=== PATIENT | male | born 1935 | race Caucasian/White ===

== ENCOUNTER 2016-09-05 08:59 | Emergency (ER) | payer OTHER ==
[~2016-09-05] VITALS: Ht 177.8 cm; Wt 84.6 kg
[~2016-09-05 08:59] MED LIST: ASPI81TA28 PO; OMEG10003 PO; PRED10TA PO; TRIA0.1C20 PO
[2016-09-05 09:04] VITALS: TEMP 36.6; Ht 177.8 cm; Wt 84.6 kg
[2016-09-05] MEDS ORDERED: CYAN500T PO (09:45)
[2016-09-05] MEDS ORDERED: TAMS0.4C38 PO (09:47)
[2016-09-05] MEDS ORDERED: TRMCR130WC EX (09:47)
[2016-09-05] MEDS ORDERED: NITR-5 PO (09:48)
--- NOTE | 2016-09-05 10:03 | EMERGENCY ROOM VISIT NOTE ---
History Report prepared by Edmundo: Josy Owens Under the Supervision of: Dr. Naveen Agosto M.D. First contact with patient: 09:46 Chief Complaint: WEAKNESS Stated Complaint: VERY WEAK,NOT EATING History of Present Illness The patient is a 81 year old male who presents to the Emergency Room with complaints of worsening weakness since yesterday. The patient has a history of dementia and the majority of the history is obtained from the patient's . She states that about 1 month ago the patient had a urinary catheter placed for urinary retention and an enlarged prostate. They have been on vacation for the past month. They returned yesterday and noticed that the patient seemed to be much weaker than usual. noticed some hematuria yesterday when she was changing his bag. This morning the patient was still acting weak. He got up to go to the bathroom and reports hearing some heavy breathing. She went to check on him and found that he had fallen. She thinks that he slid down the wall because she found him in a seated position. The patient did not complain of any pain or injury from his fall. The history is limited due to the patient' s dementia. Source of History: patient, spouse/significant other History Limited By: dementia Onset: yesterday Position: other (global) Quality: other (weakness) Timing: worsening Associated Symptoms: + urinary symptoms (hematuria) Note: Pt denies any pain or injury from his fall. Review of Systems ROS is limited (other than those obtained from ) secondary to the patient's dementia. Please see Additional Medical History Sheet. Past Medical & Surgical Medical Problems: (1) Dementia (2) Hypertrophy Of Prostate (Benign) Family History Omitted due to advanced age Social History Smoking Status: Never Smoker Alcohol Use: none Marital Status: Housing Status: lives with significant other Occupation Status: retired Current/Historical Medications Scheduled Aspirin (Aspirin Ec), 162 MG PO BID Cyanocobalamin (Vitamin B-12), 500 MCG PO DAILY Nitrofurantoin Monohyd Macrocr (Macrobid), 100 MG PO BID [place]-3 Fatty Acids (Lynn Oil-1000), 2 CAP PO DAILY Sulfa/Trimethoprim (Bactrim Ds 800MG/160MG), 1 TAB PO BID Tamsulosin Hcl (Flomax), 0.4 MG PO DAILY Triamcinolone Acet (Aristocort 0.1%), 1 APPLN EX BID Allergies Coded Allergies: Caffeine (Verified Allergy, Mild, RASH, 09/05/16) Griggs (Verified Allergy, Mild, RASH, 09/05/16) Phosphoric Acid (Verified Allergy, Mild, RASH, 09/05/16) Sucrose (Verified Allergy, Mild, RASH, 09/05/16) Physical Exam Vital Signs Date Time Temp Pulse Resp B/P Pulse Ox O2 Delivery O2 Flow Rate FiO2 09/05/16 12:37 57 20 123/60 92 09/05/16 11:00 57 15 119/66 92 09/05/16 09:30 61 09/05/16 09:04 36.6 64 18 133/75 93 Room Air Physical Exam GENERAL: Patient awake, alert, oriented x 3. Patient follows commands. Patient does not appear toxic. Patient is adequately hydrated and well- nourished. SKIN: No erythema, pallor, cyanosis or rash HEENT: Normal head, pupils equal, reactive to light and accommodation. No hemotympanum, marley sign, or raccoon sign. Ears normal. Oral cavity and posterior pharynx appear normal. Neck: Without adenopathy, no neck vein distention. LUNGS: Clear to auscultation. No wheezes, no rales, no rhonchi. HEART: No murmurs. No gallops. No rubs ABDOMEN: No masses, no rebound, no hepatomegaly or splenomegaly. BACK: No signs of trauma. EXTREMITIES: No signs of trauma. No pedal or pretibial edema. No calf or thigh tenderness. NEUROLOGIC: Cranial nerves II-XII within normal limits. No gross motor sensory function deficits. Medical Decision & Procedures Laboratory Results 09/05/16 10:45 Red Blood Count 5.08, Mean Corpuscular Volume 94.1, Mean Corpuscular Hemoglobin 32.7, Mean Corpuscular Hemoglobin Concent 34.7, Mean Platelet Volume 10.0, Neutrophils (%) (Auto) 82.0, Lymphocytes (%) (Auto) 7.9, Monocytes (%) (Auto) 9.6, Eosinophils (%) (Auto) 0.1, Basophils (%) (Auto) 0.1, Neutrophils # (Auto) 13.15, Lymphocytes # (Auto) 1.26, Monocytes # (Auto) 1.54, Eosinophils # (Auto) 0.02, Basophils # (Auto) 0.02 Test 09/05/16 10:45 09/05/16 10:50 White Blood Count 16.04 K/uL (4.8-10.8) Red Blood Count 5.08 M/uL (4.7-6.1) Hemoglobin 16.6 g/dL (14.0-18.0) Hematocrit 47.8 % (42-52) Mean Corpuscular Volume 94.1 fL (80-100) Mean Corpuscular Hemoglobin 32.7 pg (25-34) Mean Corpuscular Hemoglobin Concent 34.7 g/dl (32-36) Platelet Count 191 K/uL (130-400) Mean Platelet Volume 10.0 fL (7.4-10.4) Neutrophils (%) (Auto) 82.0 % Lymphocytes (%) (Auto) 7.9 % Monocytes (%) (Auto) 9.6 % Eosinophils (%) (Auto) 0.1 % Basophils (%) (Auto) 0.1 % Neutrophils # (Auto) 13.15 K/uL (1.4-6.5) Lymphocytes # (Auto) 1.26 K/uL (1.2-3.4) Monocytes # (Auto) 1.54 K/uL (0.11-0.59) Eosinophils # (Auto) 0.02 K/uL (0-0.5) Basophils # (Auto) 0.02 K/uL (0-0.2) RDW Standard Deviation 46.4 fL (36.4-46.3) RDW Coefficient of Variation 13.4 % (11.5-14.5) Immature Granulocyte % (Auto) 0.3 % Immature Granulocyte # (Auto) 0.05 K/uL (0.00-0.02) Prothrombin Time 12.0 SECONDS (9.0-12.0) Prothromb Time International Ratio 1.1 (0.9-1.1) Activated Partial Thromboplast Time 30.1 SECONDS (21.0-31.0) Partial Thromboplastin Ratio 1.2 Urine Color ORANGE Urine Appearance TURBID (CLEAR) Urine pH 6.0 (4.5-7.5) Urine Specific Harris 1.017 (1.000-1.030) Urine Protein 2+ (NEG) Urine Glucose (UA) NEG (NEG) Urine Ketones NEG (NEG) Urine Occult Blood 3+ (NEG) Urine Nitrite POS (NEG) Urine Bilirubin NEG (NEG) Urine Urobilinogen NEG (NEG) Urine Leukocyte Esterase LARGE (NEG) Urine WBC (Auto) >30 /hpf (0-5) Urine RBC (Auto) >30 /hpf (0-4) Urine Hyaline Casts (Auto) 10-30 /lpf (0-5) Urine Epithelial Cells (Auto) 10-20 /lpf (0-5) Urine Bacteria (Auto) NEG (NEG) Urine Pathogenic Casts /lpf (0) Urine Mucus PRESENT (NONE PRSENT) Laboratory results as stated above per my review. ECG Indication: weakness Rate (beats per minute): 61 Rhythm: normal sinus Findings: no acute ischemic change, no ectopy ED Course 945: Past medical records reviewed. The patient was evaluated in room A12B. A complete history and physical examination was performed. 1210: I reassessed the patient at this time. He is feeling better and resting comfortably. I discussed the results and treatment plan with the patient and his . I answered all pertaining questions that they had. They expressed understanding and verbalized agreement. The patient will be discharged home. Medical Decision Differential diagnoses includes weakness, UTI, metabolic disorder, recent fall. The patient has no evidence of recent trauma. I am not concerned at this time about significant head, neck, chest or abdominal trauma. The patient does have urinary retention. Urinalysis reveals a urinary tract infection. White count is elevated most likely from the urinary tract infection. A new catheter was placed. The specimen was obtained from that. The patient was started on Bactrim. The patient will remain on Flomax. He has a follow-up appointment with Dr. Hamlin on . The catheter was left in place and hooked to a leg bag. Impression Primary Impression: Urinary tract infection Additional Impression: Urinary retention Scribe Attestation The scribe's documentation has been prepared under my direction and personally reviewed by me in its entirety. I confirm that the note above accurately reflects all work, treatment, procedures, and medical decision making performed by me. Departure Information Dispostion Home / Self-Care Prescriptions Sulfa/Trimethoprim (Bactrim Ds 800MG/160MG) Tab 1 TAB PO BID, #20 TAB Prov: Naveen Agosto M.D. 09/05/16 Referrals Jonny Monaco M.D. (PCP) Esther Hamlin MD Forms HOME CARE DOCUMENTATION FORM, IMPORTANT VISIT INFORMATION Patient Instructions My [facility] Additional Instructions One Bactrim twice a day for 10 days. Follow-up with Dr. Hamlin as scheduled. Problem Qualifiers Primary Impression: Urinary tract infection Urinary tract infection type: site unspecified Hematuria presence: with hematuria Qualified Codes: N39.0 - Urinary tract infection, site not specified ; R31.9 - Hematuria, unspecified
[2016-09-05 11:12] LABS: BASO % 0.1 %; BASO ABS # 0.02 K/uL (0-0.2); COMPLETE YES; EOS % 0.1 %; HEMATOCRIT 47.8 % (42-52); IG% 0.3 %; LYMPH % 7.9 %; LYMPH ABS # 1.26 K/uL (1.2-3.4); MEAN CELL VOLUME 94.1 fL (80-100); MEAN CORPUSCULAR HEMOGLOBIN 32.7 pg (25-34); MEAN CORPUSCULAR HGB CONC 34.7 g/dl (32-36); MONO % 9.6 %; PLATELET COUNT 191 K/uL (130-400); RED BLOOD COUNT 5.08 M/uL (4.7-6.1); WHITE BLOOD COUNT 16.04 K/uL (4.8-10.8)
[2016-09-05 11:23] LABS: URINE APPEARANCE TURBID (CLEAR); URINE COLOR ORANGE; URINE NITRITE POS (NEG); URINE SPECIFIC GRAVITY 1.017 (1.000-1.030); UROBILINOGEN NEG (NEG); ZZURINE CULT IF INDIC CATH YES
[2016-09-05 11:24] LABS: INR 1.1 (0.9-1.1); PARTIAL THROMBOPLASTIN RATIO 1.2
[2016-09-05 11:35] LABS: MANUAL MICROSCOPIC REQUIRED? NO; REVIEW REQ? YES
[2016-09-05 11:36] LABS: URINE BILIRUBIN NEG (NEG)
[2016-09-05 12:04] LABS: URINE MUCUS PRESENT (NONE PRSENT)
[2016-09-05] MEDS ORDERED: SULF800T23 PO (12:18)
[2016-09-05 12:37] VITALS: BP 123/60; PULSE 57; O2SAT 92
--- NOTE | 2016-09-07 15:15 | Pharmacy Progress Note ---
ED Pharmacist Culture FollowUp Date of Service: September 07, 2016. Called patient regarding urine culture. Patient has a history of dementia - spoke with patient's . Counseled to stop Bactrim and start new antibiotic TUNDE as follows. Counseled on importance of follow-up - reports a scheduled appointment for September 13. Prescription for ciprofloxacin 500 mg po BID x14 days called to [facility] at the patient's 's request. Case discussed with Dr. Braahona, who is the prescribing provider.
== END 2016-09-05 12:40 | disposition home or self-care (01) ==
LOC: C.EDB 09:00 → C.EDA 12:40
DX: N39.0 Urinary tract infection, site not specified (principal); N40.1 Benign prostatic hyperplasia with lower urinary tract symptoms; R33.9 Retention of urine, unspecified; F03.90 Unspecified dementia, unspecified severity, without behavioral disturbance, psychotic disturbance, mood disturbance, and anxiety; Z79.82 Long term (current) use of aspirin; Z79.899 Other long term (current) drug therapy

== ENCOUNTER → 2017-07-16 | Outpatient (CLI) | payer OTHER ==
[~2017-07-16] MED LIST changes: +CYAN500T PO; +NITR-5 PO; -PRED10TA PO; +TAMS0.4C38 PO; -TRIA0.1C20 PO; +TRMCR130WC EX
[2017-07-16 17:15] LABS: BASO % 0.2 %; BASO ABS # 0.02 K/uL (0-0.2); EOS % 2.8 %; EOS ABS # 0.23 K/uL (0-0.5); HEMATOCRIT 51.3 % (42-52); IG# 0.01 K/uL (0.00-0.02); LYMPH % 30.8 %; LYMPH ABS # 2.55 K/uL (1.2-3.4); MEAN CORPUSCULAR HGB CONC 35.1 g/dl (32-36); MEAN PLATELET VOLUME 10.6 fL (7.4-10.4); MONO % 8.1 %; MONO ABS # 0.67 K/uL (0.11-0.59); PLATELET COUNT 193 K/uL (130-400); RED CELL DISTRIBUTION WIDTH CV 13.5 % (11.5-14.5); RED CELL DISTRIBUTION WIDTH SD 46.3 fL (36.4-46.3); WHITE BLOOD COUNT 8.28 K/uL (4.8-10.8)
[2017-07-16 17:22] LABS: ALBUMIN 3.6 gm/dl (3.4-5.0); BLOOD UREA NITROGEN 11 mg/dl (7-18); CALCIUM 8.8 mg/dl (8.5-10.1); CARBON DIOXIDE 29 mmol/L (21-32); CREATININE 1.17 mg/dl (0.60-1.40); GLUCOSE 134 mg/dl (70-99); POTASSIUM 3.9 mmol/L (3.5-5.1); SODIUM 140 mmol/L (136-145)
[2017-07-16 17:33] LABS: ALKALINE PHOSPHATASE 84 U/L (45-117); ALT/SGPT 41 U/L (12-78); AST/SGOT 33 U/L (15-37); TOTAL PROTEIN 7.3 gm/dl (6.4-8.2)
== END | disposition home or self-care (01) ==
LOC: C.LABSPEC 16:48
PROVIDERS: ATTEND Internal Medicine
DX: F03.90 Unspecified dementia, unspecified severity, without behavioral disturbance, psychotic disturbance, mood disturbance, and anxiety (principal)

== ENCOUNTER 2018-10-18 09:58 | Inpatient (IN) ==
--- OUTSIDE RECORDS SUMMARY | 2018-10-18 10:01 | External Medical Summary | Continuity of Care Document ---
:1935 Author Name Benjamin Fan Address Unavailable Unavailable , Care Team Providers Name Role Phone Corby Byrd M.D. 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) Sensitivity to the cold (780.99) (R68.89) Actinic keratosis (702.0) (L57.0) Dyslipidemia, goal LDL below 100 (272.4) (E78.5) Benign prostatic hyperplasia with lower urinary tract symptoms, symptom details unspecified (600.01) (N40.1) Allergic rhinitis (477.9) (J30.9) Hearing loss (389.9) (H91.90) Functional Status Hearing loss Allergies and Adverse Reactions No Known Drug Allergies (Allergy) Adhesive Tape (Allergy) Reaction: Hives No Known Drug Allergies (Allergy) Oranges (Allergy) Reaction: Other Other (Allergy) Reaction: Other Medications [place]-3 Fish Oil 500 MG Oral Capsule; TAKE 1 CAPSULE Daily Refills: 0 Finasteride 5 MG Oral Tablet; Take 1 tablet daily Quantity: 90 Refills: 3 Memantine HCl - 10 MG Oral Tablet; Take 1 tablet twice daily Meng Byrd Start: 20-Jun-2018 Quantity: 180 Refills: 1 Procedures Procedures not documented Immunizations Immunizations not documented Family History Father Family history of malignant neoplasm of prostate (V16. 42) (Z80.42) Status: Active Mother Family history of Alzheimer's disease (V17.2) (Z82.0) Status : Active Sister Family history of malignant neoplasm of breast (V16.3) (Z80. 3) Status: Active Family history of blood dyscrasia (V18.3) (Z83.2) Status: Ac tive Social History - Smoking Status Never smoker Plan of Treatment Planned Encounters Appointment; Sterling Byrd M.D. Start: 25-Mar-2019 14:30 Req uest Planned Observations Planned Goals not documented Results No Known Results Results not documented Vital Signs 06-Oct-2018 14:57 Systolic 144 mm[Hg] Comments: Location: LUE; Position: Sitting Diastolic 85 mm[Hg] Comments: Location: [facility] [place]; Position: Sitting BMI Calculated 28.97 kg/m2 Weight 199 lb BSA Calculated 2.07 m2 Heart Rate 66 /min Height 69.5 in O2 Saturation 92 % Encounters Appointment; Sterling Byrd M.D. 06-Oct-2018 15:00 Encounter Diagnosis: Problem not documented Appointment; Sterling Byrd M.D. 20-Jun-2018 14:00 Encounter Diagnosis: Problem not documented Appointment; Sterling Byrd M.D. 25-Mar-2019 14:30 Encounter Diagnosis: Problem not documented
[2018-10-18 10:24] LABS: Appearance Urine Clear (Clear); Bacteria Urine Automated Negative (Negative); Bilirubin Urine Negative (Negative); Blood Urine 3+ (Negative); Cast Urine Automated 0 /lpf (0-5); Color Urine Dark Yellow; Epithelial Cell Urine Auto 0-5 /lpf (0-5); Glucose Urine UA Negative (Negative); Ketones Urine Negative (Negative); Leukocyte Esterase Urine 1+ (Negative); Nitrite Urine Negative (Negative); Protein Urine Negative (Negative); RBC Urine Automated 0-4 /hpf (0-4); Specific Gravity Urine 1.018 (1.000-1.030); Urobilinogen Urine Negative (Negative)
[2018-10-18 10:34] LABS: Basophils # (auto) 0.02 K/uL (0-0.2); Basophils % (auto) 0.2 %; Eosinophils # (auto) 0.27 K/uL (0-0.5); Eosinophils % (auto) 2.8 %; Hematocrit (blood only) 46.6 % (42-52); Hemoglobin 16.5 g/dL (14.0-18.0); Immature Granulocytes # (auto) 0.05 K/uL (0.00-0.02); Immature Granulocytes % (auto) 0.5 %; Lymphocytes # (auto) 1.39 K/uL (1.2-3.4); Lymphocytes % (auto) 14.3 %; Mean Corpuscular Hgb Conc 35.4 g/dL (32-36); Mean Corpuscular Volume 92.8 fL (80-100); Mean Platelet Volume 11.1 fL (7.4-10.4); Monocytes # (auto) 1.09 K/uL (0.11-0.59); Monocytes % (auto) 11.2 %; Neutrophils # (auto) 6.91 K/uL (1.4-6.5); Platelet Count 103 K/uL (130-400); RDW Coefficient of Variation 13.6 % (11.5-14.5); RDW Standard Deviation 46.1 fL (36.4-46.3); Red Blood Count 5.02 M/uL (4.7-6.1); White Blood Count 9.73 K/uL (4.8-10.8)
--- NOTE | 2018-10-18 11:01 | XRay Report ---
XR chest 1V portable HISTORY: weakness COMPARISON: Chest 12/01/2013. FINDINGS: Small left basilar linear densities favor subsegmental atelectasis or scarring area the laith gs are otherwise clear. The heart is normal in size. No pleural effusions. No pneumothorax. IMPRESSION: No acute process. Electronically signed by: Edinson Miner M.D. 10/18/2018 11:00 AM
[2018-10-18 11:06] LABS: Albumin Globulin Ratio 0.7 (0.9-2); Albumin Level 2.7 gm/dl (3.4-5.0); BUN Creatinine Ratio 11.4 (10-20); Bilirubin,Total 1.9 mg/dl (0.2-1); Calcium 8.5 mg/dl (8.5-10.1); Est GFR (African American) 8.4; Est GFR (Non-African American) 7.2; Globulin 3.7 gm/dl (2.5-4.0); Potassium 4.2 mmol/L (3.5-5.1); Total Protein 6.4 gm/dl (6.4-8.2)
--- NOTE | 2018-10-18 11:46 | CT Scan Report ---
ABDOMEN AND PELVIS CT WITHOUT CONTRAST CT DOSE: 780.94 mGy.cm HISTORY: lower back pain TECHNIQUE: Multiaxial CT images of the abdomen and pelvis were performed without contrast. A dose lo wering technique was utilized adhering to the principles of ALARA. COMPARISON STUDY: None. FINDINGS: Motion artifact results in suboptimal evaluation. A few linear densities at the lung bases favor subsegmental atelectasis. There is also a small peripheral area of consolidation within the rig ht middle lobe posteriorly and a 4 mm subpleural nodule seen on image 28. No pneumoperitoneum. No pne umatosis. There are few small scattered lucent lesion seen within the ribs. The unenhanced liver, gal lbladder, pancreas, spleen, adrenal glands are unremarkable. No retroperitoneal lymphadenopathy. Ther e is a left retroaortic renal vein. Suboptimal evaluation for bowel pathology due to the lack of intr avenous and oral contrast. However, there is no definite bowel wall thickening or obstruction. Modera te well-formed stool seen throughout the colon and rectum. Moderate bilateral perinephric fat strandi ng/edema with mild bilateral hydroureteronephrosis to the level of the ureterovesical junctions. No r enal or ureteral stones. The bladder is decompressed by a Haq catheter. There is mild fat stranding surrounding the decompressed bladder. The prostate gland is enlarged measuring 6.1 cm. No fractures within the visualized osseous structures. IMPRESSION: 1. Mild bilateral hydroureteronephrosis to the level of the ureterovesical junctions. The bladder has been decompressed by Haq catheter. This may be result of chronic outlet obstruction due to the enl arged prostate gland. 24 hour renal ultrasound follow-up can be performed to evaluate for decompressi on of the renal collecting systems. No renal or ureteral calculi. 2. Mild gastric surrounding the decompressed bladder as well as bilateral perinephric fat stranding/e david. This could be due to the suspected chronic hydronephrosis or possibly a superimposed cystitis/p yelonephritis. Recommend correlation with urinalysis. 3. No definite bowel wall thickening or obstruction. 4. Small patchy airspace opacity within the right middle lobe. This may represent atelectasis or pneu monia. 5. There appear to be a few small lucent lesions within the ribs. This could represent developing mul tiple myeloma. Clinical correlation recommended. Electronically signed by: Edinson Miner M.D. 10/18/2018 11:44 AM
--- NOTE | 2018-10-18 11:56 | Emergency Department Note ---
Entered by Dona Ramesh acting as a scribe for History of Present Illness General Chief complaint: Weakness Stated complaint: weakness Time Seen by Provider: 10/18/18 09:59 Source: patient and family () Mode of arrival: EMS Limitations: altered mental status History of Present Illness Provider complaint: Weakness Onset (ago): day(s) (a few days ago) Pain Consistency: + other (worsening) Quality: + other (weakness) Relieved By: + none Associated symptoms: + loss of appetite and + other (Additional symptoms: back pain. Denies: diarrhea, abdominal pain); no fever/chills Treatments prior to arrival: none The patient is an 83 year old male with a history of dementia who presents to the Emergency Room with complaints of worsening weakness starting yesterday. Per , the patient became increasingly weak over the course of the day yesterday. She states that, by the evening, she was unable to get him out of his chair to eat dinner and she ended up feeding him in his chair. She notes that he also did not eat well but was able to drink a lot. She adds that he started complaining of back pain last night. She indicates that the patient has never experienced such symptoms before, so she decided to bring him to the ED today. The patient currently denies any diarrhea and abdominal pain. His further denies any fevers and recent falls. She reports that the patient has previously suffered fr om a bladder infection secondary to a catheter. HPI limited secondary to altered mental status. Home Medications Home Medications Medication Instructions Recorded Confirmed Type memantine 10 mg PO BID 10/18/18 10/18/18 History Allergies Allergy/AdvReac Type Severity Reaction Status Date / Time caffeine Allergy Mild RASH Verified 10/18/18 10:48 orange Allergy Mild RASH Verified 10/18/18 10:48 sucrose Allergy Mild RASH Verified 10/18/18 10:48 Phosphoric Acid Allergy Mild RASH Uncoded 10/18/18 10:48 Past Med/Surg History Medical History Bladder catheter infection (Acute) Dementia (Chronic) Social History Preferred Language: Albanian Communication Ability: Effective Patient Service Coordinator Required: No Beliefs That Will Affect Care: None marital status: Current Living Situation: Spouse current occupational status: retired Other Information That Helps Us Care for You: No Feels Safe at Home: Yes Safety Concerns: Feels Safe At This Time Smoking Status: Never smoker Do You Dip or Chew Tobacco: No Second Hand Exposure: No Tobacco Cessation Education Requested by Patient: No Hx Alcohol Use: No Hx Substance Use: No Review of Systems Other (Limited secondary to altered mental status) Physical Exam Vital Signs Vital Signs - 24 hr 10/18/18 10:00 10/18/18 10:21 10/18/18 10:29 Temperature 36.8 C Temperature Source Oral Sepsis Recent Fever Within 48 Hours No Sepsis Action Taken by Nursing No Action Required Pulse Rate 63 Pulse Rate [Finger] Pulse Rate from SpO2 Sensor 67 Respiratory Rate 20 Respiratory Effort / Characteristics Respiratory Depth Normal Respiratory Pattern Blood Pressure 149/84 H 149/84 H Blood Pressure [Right Arm] Blood Pressure Mean 105 105 Blood Pressure Mean [Right Arm] Pulse Oximetry 91 92 93 Oxygen Delivery Method Room Air Room Air 10/18/18 10:38 10/18/18 12:21 10/18/18 13:14 Temperature Temperature Source Sepsis Recent Fever Within 48 Hours Sepsis Action Taken by Nursing Pulse Rate Pulse Rate [Finger] 58 L Pulse Rate from SpO2 Sensor 62 Respiratory Rate 17 Respiratory Effort / Characteristics Non-Labored Spontaneous Respiratory Depth Normal Respiratory Pattern Regular Blood Pressure Blood Pressure [Right Arm] 135/73 Blood Pressure Mean Blood Pressure Mean [Right Arm] 93 Pulse Oximetry 90 96 Oxygen Delivery Method Room Air Room Air GENERAL: Pleasant, awake, alert to verbal stimuli, well-appearing, in no distress HENT: Normocephalic, atraumatic. EYES: Normal conjunctiva. Sclera non-icteric. NECK: Supple. No nuchal rigidity. RESPIRATORY: Clear to auscultation. No wheezes. Normal respiratory effort. CARDIAC: Normal rate. Normal rhythm. Extremities warm and well perfused. GI: Soft, non-distended. No tenderness to palpation. No rebound or guarding. RECTAL: Deferred. MUSCULOSKELETAL: Atraumatic. Chest examination reveals no tenderness. There is no CVA tenderness to palpation. LOWER EXTREMITIES: Calves are equal size bilaterally and non-tender. No edema NEURO: Oriented to person. No sensory or motor deficits noted. No facial droop. Not oriented to events or time. SKIN: Warm and dry. No rash or jaundice noted. Course 1002: The patient was evaluated in room B9, and a complete history and physical examination were performed. 1020: I spoke to the patient's at bedside and obtained more information about the patient's symptoms. 1110: I checked on the patient and updated him and his on his results. 1151: On reevaluation, the patient is resting. I discussed the results and findings with him and his . The patient verbalized agreement of the treatment plan. 1154: I spoke with Anaya Wyatt. The patient will be evaluated for further management and care. Consultations Consultation #1: I spoke with Anaya Wyatt. The patient will be evaluated for further management and care. Time: 11:54 Administered Medications Sodium Chloride (Nss 1000ml) 1,000 mls @ 125 mls/hr IV .Q8H ABNER Stop: 11/17/18 14:51 Last Admin: 10/18/18 15:07 Dose: 125 mls/hr Documented by: [id number] Ceftriaxone Sodium 2,000 mg/ (Dextrose) 70 mls @ 100 mls/hr IV Q24H ABNER; Protocol Stop: 10/28/18 15:29 Last Infusion: 10/18/18 16:06 Dose: 0 mls/hr Documented by: [id number] Admin: 10/18/18 15:20 Dose: 100 mls/hr Documented by: [id number] Medical Decision Making Differential Diagnosis Differential diagnosis: Etiologies such as metabolic, infection, hypo/hyperglycemia, electrolyte abnormalities, cardiac sources, intracerebral event, toxicologic, neurologic, as well as others were entertained. Medical Records Attestation: I reviewed the patient's medical records. Home Medications Current Medication List: was personally reviewed by me Laboratory Data Attestation: I reviewed the patient's lab results. Result diagrams: 10/18/18 10:22 10/18/18 10:22 Lab Results 10/18/18 10/18/18 10/18/18 Range/Units 10:10 10:22 10:22 WBC 9.73 (4.8-10.8) K/uL RBC 5.02 (4.7-6.1) M/uL Hgb 16.5 (14.0-18.0) g/dL Hct 46.6 (42-52) % MCV 92.8 (80-100) fL MCH 32.9 (25-34) pg MCHC 35.4 (32-36) g/dL RDW Std Deviation 46.1 (36.4-46.3) fL RDW Coeff of Shahbaz 13.6 (11.5-14.5) % Plt Count 103 L (130-400) K/uL MPV 11.1 H (7.4-10.4) fL Immature Gran % (Auto) 0.5 % Neut % (Auto) 71.0 % Lymph % (Auto) 14.3 % Monroe % (Auto) 11.2 % Eos % (Auto) 2.8 % Baso % (Auto) 0.2 % Immature Gran # (Auto) 0.05 H (0.00-0.02) K/uL Neut # (Auto) 6.91 H (1.4-6.5) K/uL Lymph # (Auto) 1.39 (1.2-3.4) K/uL Monroe # (Auto) 1.09 H (0.11-0.59) K/uL Eos # (Auto) 0.27 (0-0.5) K/uL Baso # (Auto) 0.02 (0-0.2) K/uL Absolute Nucleated RBC 0.00 (0-0) K/uL Nucleated RBC % (auto) 0.0 % Peripher Smr Path Cons PT (9.0-12.0) Seconds INR (0.9-1.1) Sodium 138 (136-145) mmol/L Potassium 4.2 (3.5-5.1) mmol/L Chloride 104 (98-107) mmol/L Carbon Dioxide 22 (21-32) mmol/L Anion Gap 12.0 H (3-11) BUN 75 H (7-18) mg/dl Creatinine 6.57 H* (0.6-1.4) mg/dl Est Cr Clr Drug Dosing 10.0 ml/min Est GFR ( Amer) 8.4 Est GFR (Non-Af Amer) 7.2 BUN/Creatinine Ratio 11.4 (10-20) Glucose 113 H (70-99) mg/dl Calcium 8.5 (8.5-10.1) mg/dl Total Bilirubin 1.9 H (0.2-1) mg/dl AST 31 (15-37) U/L ALT 26 (12-78) U/L Alkaline Phosphatase 96 (45-117) U/L Total Creatine Kinase (39-308) U/L Troponin I (0-0.045) ng/ml C-Reactive Protein (0-0.29) mg/dl Total Protein 6.4 (6.4-8.2) gm/dl Albumin 2.7 L (3.4-5.0) gm/dl Globulin 3.7 (2.5-4.0) gm/dl Albumin/Globulin Ratio 0.7 L (0.9-2) Procalcitonin (0-0.5) ng/ml TSH 1.960 (0.300-4.500) uIu/ml Urine Color Dark Yellow Urine Appearance Clear (Clear) Urine pH 5.0 (4.5-7.5) Ur Specific [place] 1.018 (1.000-1.030) Urine Protein Negative (Negative) Urine Glucose (UA) Negative (Negative) Urine Ketones Negative (Negative) Urine Blood 3+ H (Negative) Urine Nitrite Negative (Negative) Urine Bilirubin Negative (Negative) Urine Urobilinogen Negative (Negative) Ur Leukocyte Esterase 1+ H (Negative) Urine WBC (Auto) 1-5 (0-5) /hpf Urine RBC (Auto) 0-4 (0-4) /hpf U Hyaline Cast (Auto) 0 (0-5) /lpf U Epithel Cells (Auto) 0-5 (0-5) /lpf Urine Bacteria (Auto) Negative (Negative) 10/18/18 10/18/18 10/18/18 Range/Units 10:22 10:22 10:22 WBC (4.8-10.8) K/uL RBC (4.7-6.1) M/uL Hgb (14.0-18.0) g/dL Hct (42-52) % MCV (80-100) fL MCH (25-34) pg MCHC (32-36) g/dL RDW Std Deviation (36.4-46.3) fL RDW Coeff of Shahbaz (11.5-14.5) % Plt Count (130-400) K/uL MPV (7.4-10.4) fL Immature Gran % (Auto) % Neut % (Auto) % Lymph % (Auto) % Monroe % (Auto) % Eos % (Auto) % Baso % (Auto) % Immature Gran # (Auto) (0.00-0.02) K/uL Neut # (Auto) (1.4-6.5) K/uL Lymph # (Auto) (1.2-3.4) K/uL Monroe # (Auto) (0.11-0.59) K/uL Eos # (Auto) (0-0.5) K/uL Baso # (Auto) (0-0.2) K/uL Absolute Nucleated RBC (0-0) K/uL Nucleated RBC % (auto) % Peripher Smr Path Cons PT (9.0-12.0) Seconds INR (0.9-1.1) Sodium (136-145) mmol/L Potassium (3.5-5.1) mmol/L Chloride (98-107) mmol/L Carbon Dioxide (21-32) mmol/L Anion Gap (3-11) BUN (7-18) mg/dl Creatinine (0.6-1.4) mg/dl Est Cr Clr Drug Dosing ml/min Est GFR ( Amer) Est GFR (Non-Af Amer) BUN/Creatinine Ratio (10-20) Glucose (70-99) mg/dl Calcium (8.5-10.1) mg/dl Total Bilirubin (0.2-1) mg/dl AST (15-37) U/L ALT (12-78) U/L Alkaline Phosphatase (45-117) U/L Total Creatine Kinase 25 L Cancelled (39-308) U/L Troponin I 0.022 (0-0.045) ng/ml C-Reactive Protein 4.01 H Cancelled (0-0.29) mg/dl Total Protein (6.4-8.2) gm/dl Albumin (3.4-5.0) gm/dl Globulin (2.5-4.0) gm/dl Albumin/Globulin Ratio (0.9-2) Procalcitonin 0.23 (0-0.5) ng/ml TSH (0.300-4.500) uIu/ml Urine Color Urine Appearance (Clear) Urine pH (4.5-7.5) Ur Specific [place] (1.000-1.030) Urine Protein (Negative) Urine Glucose (UA) (Negative) Urine Ketones (Negative) Urine Blood (Negative) Urine Nitrite (Negative) Urine Bilirubin (Negative) Urine Urobilinogen (Negative) Ur Leukocyte Esterase (Negative) Urine WBC (Auto) (0-5) /hpf Urine RBC (Auto) (0-4) /hpf U Hyaline Cast (Auto) (0-5) /lpf U Epithel Cells (Auto) (0-5) /lpf Urine Bacteria (Auto) (Negative) 10/18/18 10/18/18 Range/Units 10:22 10:22 WBC (4.8-10.8) K/uL RBC (4.7-6.1) M/uL Hgb (14.0-18.0) g/dL Hct (42-52) % MCV (80-100) fL MCH (25-34) pg MCHC (32-36) g/dL RDW Std Deviation (36.4-46.3) fL RDW Coeff of Shahbaz (11.5-14.5) % Plt Count (130-400) K/uL MPV (7.4-10.4) fL Immature Gran % (Auto) % Neut % (Auto) % Lymph % (Auto) % Monroe % (Auto) % Eos % (Auto) % Baso % (Auto) % Immature Gran # (Auto) (0.00-0.02) K/uL Neut # (Auto) (1.4-6.5) K/uL Lymph # (Auto) (1.2-3.4) K/uL Monroe # (Auto) (0.11-0.59) K/uL Eos # (Auto) (0-0.5) K/uL Baso # (Auto) (0-0.2) K/uL Absolute Nucleated RBC (0-0) K/uL Nucleated RBC % (auto) % Peripher Smr Path Cons Cancelled PT 11.9 (9.0-12.0) Seconds INR 1.2 H (0.9-1.1) Sodium (136-145) mmol/L Potassium (3.5-5.1) mmol/L Chloride (98-107) mmol/L Carbon Dioxide (21-32) mmol/L Anion Gap (3-11) BUN (7-18) mg/dl Creatinine (0.6-1.4) mg/dl Est Cr Clr Drug Dosing ml/min Est GFR ( Amer) Est GFR (Non-Af Amer) BUN/Creatinine Ratio (10-20) Glucose (70-99) mg/dl Calcium (8.5-10.1) mg/dl Total Bilirubin (0.2-1) mg/dl AST (15-37) U/L ALT (12-78) U/L Alkaline Phosphatase (45-117) U/L Total Creatine Kinase (39-308) U/L Troponin I (0-0.045) ng/ml C-Reactive Protein (0-0.29) mg/dl Total Protein (6.4-8.2) gm/dl Albumin (3.4-5.0) gm/dl Globulin (2.5-4.0) gm/dl Albumin/Globulin Ratio (0.9-2) Procalcitonin (0-0.5) ng/ml TSH (0.300-4.500) uIu/ml Urine Color Urine Appearance (Clear) Urine pH (4.5-7.5) Ur Specific [place] (1.000-1.030) Urine Protein (Negative) Urine Glucose (UA) (Negative) Urine Ketones (Negative) Urine Blood (Negative) Urine Nitrite (Negative) Urine Bilirubin (Negative) Urine Urobilinogen (Negative) Ur Leukocyte Esterase (Negative) Urine WBC (Auto) (0-5) /hpf Urine RBC (Auto) (0-4) /hpf U Hyaline Cast (Auto) (0-5) /lpf U Epithel Cells (Auto) (0-5) /lpf Urine Bacteria (Auto) (Negative) Imaging Data Radiologist's Impression: Radiology results as stated below per my review and the radiologist's interpretation: XR chest 1V portable HISTORY: weakness COMPARISON: Chest 12/01/2013. FINDINGS: Small left basilar linear densities favor subsegmental atelectasis or scarring area the lungs are otherwise clear. The heart is normal in size. No pleural effusions. No pneumothorax. IMPRESSION: No acute process. Electronically signed by: Edinson Miner M.D. 10/18/2018 11:00 AM ABDOMEN AND PELVIS CT WITHOUT CONTRAST CT DOSE: 780.94 mGy.cm HISTORY: lower back pain TECHNIQUE: Multiaxial CT images of the abdomen and pelvis were performed without contrast. A dose lowering technique was utilized adhering to the principles of ALARA. COMPARISON STUDY: None. FINDINGS: Motion artifact results in suboptimal evaluation. A few linear densities at the lung bases favor subsegmental atelectasis. There is also a small peripheral area of consolidation within the right middle lobe posteriorly and a 4 mm subpleural nodule seen on image 28. No pneumoperitoneum. No pneumatosis. There are few small scattered lucent lesion seen within the ribs. The unenhanced liver, gallbladder, pancreas, spleen, adrenal glands are unremarkable. No retroperitoneal lymphadenopathy. There is a left retroaortic renal vein. Suboptimal evaluation for bowel pathology due to the lack of intravenous and oral contrast. However, there is no definite bowel wall thickening or obstruction. Moderate well-formed stool seen throughout the colon and rectum. Moderate bilateral perinephric fat stranding/edema with mild bilateral hydroureteronephrosis to the level of the ureterovesical junctions. No renal or ureteral stones. The bladder is decompressed by a Haq catheter. There is mild fat stranding surrounding the decompressed bladder. The prostate gland is enlarged measuring 6.1 cm. No fractures within the visualized osseous structures. IMPRESSION: 1. Mild bilateral hydroureteronephrosis to the level of the ureterovesical junctions. The bladder has been decompressed by Hqa catheter. This may be result of chronic outlet obstruction due to the enlarged prostate gland. 24 hour renal ultrasound follow-up can be performed to evaluate for decompression of the renal collecting systems. No renal or ureteral calculi. 2. Mild gastric surrounding the decompressed bladder as well as bilateral p erinephric fat stranding/edema. This could be due to the suspected chronic hydronephrosis or possibly a superimposed cystitis/pyelonephritis. Recommend correlation with urinalysis. 3. No definite bowel wall thickening or obstruction. 4. Small patchy airspace opacity within the right middle lobe. This may represent atelectasis or pneumonia. 5. There appear to be a few small lucent lesions within the ribs. This could represent developing multiple myeloma. Clinical correlation recommended. Electronically signed by: Edinson Miner M.D. 10/18/2018 11:44 AM ECG Data Attestation: I personally reviewed and interpreted this ECG as follows: Indication: weakness Rate (beats per minute): 65 Rhythm: normal sinus Findings: + other (normal axis) and + PVC; no ST elevation Blood Pressure Blood Pressure Findings: Elevated blood pressure Blood Pressure Disposition: further management by hospitalist JENNA Serna Patient is an 83-year-old gentleman presenting via ambulance this morning with a complaint of generalized weakness. Patient does have a history unfortunately of dementia and provides limited history. states symptoms just started last night. Lives at home with and EMS reports that she stated he complained of some back pain last night. Has been drinking well. Patient has defecated upon arrival was cleaned. Urinary cath was completed and basic blood work, EKG, chest x-ray, CT of the pelvis was completed to look for other possible pathology. Not significantly tender in his abdomen or his back at this time. No reported history of trauma. Afebrile here. EKG and troponin completed but a lower suspicion for cardiac syndrome. I doubt this represents PE or dissection. Chest x-ray no evidence of pneumonia. Basic labs show no evidence of significant anemia or leukocytosis. Urine catheterization revealed 1000 mL's of fluid and urinalysis luckily does not show significant evidence of infection at this time. Postulate his symptoms were related to acute urinary retention. Patient does have evidence of acute kidney injury likely postobstructive. CT scan without contrast did not show acute intra-abdominal pathology such as nephrolithiasis; findings consistent with likely hydronephrosis improving after decompression. Do not believe he has pneumonia at this time and will defer treatment of atelectasis versus pneumonia process in the right middle lobe. Did make family aware of question of some possible small lucent lesions of the ribs for multiple myeloma. Given his significant renal dysfunction Haq was placed and believe observation overnight for postobstructive diuresis and monitoring of his kidney function is indicated. [facility] Impression & Plan Urinary retention, Acute kidney injury Discharge Plan Visit Data *Final* Discharge Date/Time: 10/18/18 14:27 Chief Complaint: Weakness Stated Complaint: weakness ED Provider: Gabe Virgen Discharge Problem: Urinary retention, Acute kidney injury Patient Disposition: Admitted As Inpatient Discharge Instructions Interventions: ED Discharge Assessment Last Done: 10/18/18 14:27 The scribe's documentation has been prepared under my direction and personally reviewed by me in its entirety. I confirm that the note above accurately reflects all work, treatment, procedures, and medical decision making performed by me.
--- NOTE | 2018-10-18 12:15 | History & Physical Report ---
Date of Service October 18, 2018 Assessment & Plan (1) Urinary retention: Obstructive Uropathy/Acute Kidney Injury Bilateral hydroureteronephrosis Metabolic Encephalopathy Chronic outlet obstruction H/O prostate Cancer, BPH Haq Catheter placed in ED Discussed with Nephrology/Urology: Appreciate Input No plan for any procedures-sent placement/dialysis Previously on Proscar--currently not taking Start on flomax Monitor renal function closely No aggressive measures as per patient's family Plan to repeat renal ultrasound tomorrow R/O UTI: CT ABD:findings noted to be suggestive of possible cystitis/pyelonephritis Urine Culture Started on Ceftriaxone Incidental findings of lucent lesions within the ribs: To R/O multiple Myeloma Normal calcium levels Obtain SPEP/UPEP/Peripheral smear, CRP Right middle lobe Opacity Likely atelectasis Procalcitonin:0.23 Denies cough, chest pain, SOB, fever Incentive Spirometry Dementia: At baseline Continue Memantine Reorient frequently to minimize delirium DVT Px: Heparin SQ Code Status: DNI/DNR as per my discussion with Patient's spouse-POA Disposition: PT/OT prior to discharge To be determined History of Present Illness Chief Complaint: Generalized weakness Primary Care Provider: Jonny Monaco MD Patient is an 83-year-old male with history of dyslipidemia, dementia, BPH, prostate cancer and other problems presents with history of generalized weakness, change in mental status, decreased urinary output, left flank pain, poor appetite. Patient was unable to provide much history secondary to dementia. Most of the history is obtained from patient's spouse who is the POA. As per the family patient has been progressively getting weak and has been sleeping most of the time since 3 days duration. Family also noted that his urinary output has been decreased and he was eating very poorly. He ambulates independently with little assistance but has a day for he was unable to get out of his chair despite help from family. Patient's says " He was babbling which didn't make Sense and has not been himself". He was noted to be drinking a lot of water but was unable to produce any urine. Patient was noted to have GISEL with creatinine elevated at 6.57, BUN 75. CT abdomen showed mild bilateral hydroureteronephrosis, findings suggestive of chronic outlet obstruction due to enlarged prostate. Also findings noted to be suggestive of possible cystitis/pyelonephritis. Incidental findings of lucent lesions within the ribs noted suggestive of possible developing multiple myeloma. Patient's denies any history of cough, shortness of breath, wheezing, fever chills. No known history of chest pain, SOB, dizziness, pedal edema, cough, wheezing, hemoptysis, fever, chills, nausea, vomiting, lood in stools, diarrhea, weight loss, dysuria, hematuria. Allergies Allergy/AdvReac Type Severity Reaction Status Date / Time caffeine Allergy Mild RASH Verified 10/18/18 10:48 orange Allergy Mild RASH Verified 10/18/18 10:48 sucrose Allergy Mild RASH Verified 10/18/18 10:48 Phosphoric Acid Allergy Mild RASH Uncoded 10/18/18 10:48 Home Medications Home Medications Medication Instructions Recorded Confirmed Type memantine 10 mg PO BID 10/18/18 10/18/18 History Past Med/Surg History Medical History Bladder catheter infection (Acute) Dementia (Chronic) BPH (benign prostatic hyperplasia) Prostate cancer Surgical History H/O inguinal hernia repair Family History Unknown Family history non-contributory Social History Preferred Language: Amharic Communication Ability: Effective Inhalation Therapy Aides Teacher Required: No Beliefs That Will Affect Care: None marital status: Current Living Situation: Spouse current occupational status: retired Other Information That Helps Us Care for You: No Feels Safe at Home: Yes Safety Concerns: Feels Safe At This Time Smoking Status: Never smoker Do You Dip or Chew Tobacco: No Second Hand Exposure: No Tobacco Cessation Education Requested by Patient: No Hx Alcohol Use: No Hx Substance Use: No Review of Systems Review of Systems: Unobtainable due to cognitive status Physical Exam Physical Exam: Physical Exam: Vitals signs as noted above General Appearance:Moderately built and nourished, Elderly, no apparent distress Head: normocephalic, Atraumatic Eyes: normal inspection, EOMI Neck: supple, Trachea midline Respiratory/Chest: Normal breath sounds, CTA Cardiovascular: S1, S2, No murmur Abdomen/GI:Soft, Non tender, Bowel sounds present, no CVA tenderness Extremities/Musculoskelatal:normal inspection, no edema Neurologic/Psych:AAOX3, grossly no focal neurological deficits Skin: normal color, warm Results & Data Vital Signs (Past 12 Hours) Vital Signs Temp Pulse Resp BP Pulse Ox 10/18/18 10:38 90 10/18/18 10:29 93 10/18/18 10:21 36.8 C 63 20 149/84 H 92 10/18/18 10:00 149/84 H 91 Laboratory Results Short CBC 10/18/18 Range/Units 10:22 WBC 9.73 (4.8-10.8) K/uL Hgb 16.5 (14.0-18.0) g/dL Hct 46.6 (42-52) % Plt Count 103 L (130-400) K/uL BMP 10/18/18 10:22 Sodium 138 Potassium 4.2 Chloride 104 Carbon Dioxide 22 BUN 75 H Creatinine 6.57 H* Glucose 113 H Calcium 8.5 Cardiac Enzymes 10/18/18 10/18/18 Range/Units 10:22 10:22 Total Creatine Kinase 25 L Cancelled (39-308) U/L Troponin I 0.022 (0-0.045) ng/ml Liver Function 10/18/18 Range/Units 10:22 Total Bilirubin 1.9 H (0.2-1) mg/dl AST 31 (15-37) U/L ALT 26 (12-78) U/L Alkaline Phosphatase 96 (45-117) U/L Albumin 2.7 L (3.4-5.0) gm/dl Urine 10/18/18 Range/Units 10:10 Urine Color Dark Yellow Urine Appearance Clear (Clear) Urine pH 5.0 (4.5-7.5) Ur Specific Beasley 1.018 (1.000-1.030) Urine Protein Negative (Negative) Urine Glucose (UA) Negative (Negative) Diagnostic Findings CT ABD: 1. Mild bilateral hydroureteronephrosis to the level of the ureterovesical junctions. The bladder has been decompressed by Haq catheter. This may be result of chronic outlet obstruction due to the enlarged prostate gland. 24 hour renal ultrasound follow-up can be performed to evaluate for decompression of the renal collecting systems. No renal or ureteral calculi. 2. Mild gastric surrounding the decompressed bladder as well as bilateral perinephric fat stranding/edema. This could be due to the suspected chronic hydronephrosis or possibly a superimposed cystitis/pyelonephritis. Recommend correlation with urinalysis. 3. No definite bowel wall thickening or obstruction. 4. Small patchy airspace opacity within the right middle lobe. This may represent atelectasis or pneumonia. 5. There appear to be a few small lucent lesions within the ribs. This could represent developing multiple myeloma. Clinical correlation recommended. CXR: No acute process. ECG Additional Comments: EKG: Sinus rhythm with frequent PVCs, QTC: 395
[2018-10-18 13:21] LABS: Troponin I 0.022 ng/ml (0-0.045)
[2018-10-18] MEDS ORDERED: ACETAMINOPHEN 325 MG TAB PO PRN (14:52)
[2018-10-18] MEDS ORDERED: ONDANSETRON INJ 2 MG/ML 2 ML VIAL IV PRN (14:52)
[2018-10-18] MEDS ORDERED: POLYETHYLENE (MIRALAX) 17 GM PACK PO PRN (14:52)
[2018-10-18] MEDS: SODIUM CHLORIDE 0.9% 1000ML 1,000 ML IV SCH ×2 (15:07→23:48)
[2018-10-18] MEDS: cefTRIAXone SODIUM 2,000 MG in DEXTROSE 5% 50 ML IV SCH (15:20)
[2018-10-18 15:29] LABS: INR 1.2 (0.9-1.1); Prothrombin Time 11.9 Seconds (9.0-12.0)
[2018-10-18 15:54] LABS: C Reactive Protein 4.01 mg/dl (0-0.29)
[2018-10-18] MEDS: MEMANTINE HCL 10 MG TAB PO SCH (20:16)
[2018-10-18] MEDS: HEPARIN SOD 5,000 UNIT/0.5 ML VIAL SQ SCH (20:26)
--- NOTE | 2018-10-18 20:59 | Urology Consultation ---
Date of Consultation October 18, 2018 Assessment & Plan (1) Urinary retention: acute urinary retention seems secondary to bladder outlet obstruction now relieved by taveras having some hematuria due to decompression of a very distended bladder allow nurses to irrigate catheter if blocked by clot I think hematuria will resolve in a day or 2 I do not suspect a UTI at this time. He has diarrhea, so I'd suggest d/c ceftriaxone if it is being used to cover urine. For bph start finasteride 5mg daily. Will need to check on the status of his outpatient treatment for prostate cancer. If no psa done in over a year we should check one. It will be somewhat high due to recent retention and Taveras catheter placement. Will need to determine intermodal dispatcher plan for bladder outlet obstruction with family. As dementia advances Taveras catheters become very problematic. He might need to consider bladder outlet surgery like TURP as outpatient. will follow labs making excellent urine so far. As this was only a day or 2 in developing I dont think he will need replacement fluids. Present on Admission?: Yes History of Present Illness Reason for Consultation: Urinary retention Requesting Physician: Dr Ravi Attending Physician: Jairo Finn MD History of Present Illness I am asked by dr Ravi to evaluate and treat patient for urinary retention. He presented to ER with altered mental status and anuria of over 24 hours duration. he was found to be uremic with urinary retention. He had a taveras placed in ER which drained a large amount of urine. CT after that showed bilateral moderate hydoureteronephrosis to the bladder. He has a large prostate on CT. Patient has dementia at baseline. On exam he does not know why he is here but he can answer more immediate questions like whether he has pain or if he has eaten anything lately. He denies pain. Allergies Allergy/AdvReac Type Severity Reaction Status Date / Time caffeine Allergy Mild RASH Verified 10/18/18 10:48 orange Allergy Mild RASH Verified 10/18/18 10:48 sucrose Allergy Mild RASH Verified 10/18/18 10:48 Phosphoric Acid Allergy Mild RASH Uncoded 10/18/18 10:48 Home Medications Home Medications Medication Instructions Recorded Confirmed Type memantine 10 mg PO BID 10/18/18 10/18/18 History Patient History Medical History Bladder catheter infection (Acute) Dementia (Chronic) BPH (benign prostatic hyperplasia) Prostate cancer Surgical History H/O inguinal hernia repair Family History Unknown Family history non-contributory Social History Preferred Language: Indian Communication Ability: Effective 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: No Beliefs That Will Affect Care: None marital status: Current Living Situation: Spouse current occupational status: retired Other Information That Helps Us Care for You: No Feels Safe at Home: Yes Safety Concerns: Feels Safe At This Time Smoking Status: Never smoker Do You Dip or Chew Tobacco: No Second Hand Exposure: No Tobacco Cessation Education Requested by Patient: No Hx Alcohol Use: No Hx Substance Use: No Review of Systems Review of Systems: PMH- dementia, prostate cancer BPH acute renal failure Soc- retired, , rest not obtainable from patient due to dementia Fam Hx- not contributory at his age ROS- patient cannot answer review for prior to now, but now he denies pain, cough, chest pain, fever, nausea, poor appetite, he has diarrhea Physical Exam Constitutional: well nourished, + well hydrated, healthy appearing, well groomed and comfortable; no acute distress Eyes: PERRL, conjunctivae normal, anicteric sclerae Respiratory: able to speak in complete sentences has a wet cough, and produced white phlegm Cardiovascular: Extremities: normal capillary refill; no edema Gastrointestinal (Abdomen): normal bowel sounds, soft, nontender, no hepatosplenomegaly Skin: normal turgor Psychiatric: Orientation: alert, oriented to person and cooperative; + not oriented to place and + not oriented to time Apperance: appropriately dressed Eye Contact: good eye contact Genitourinary: + CVA tenderness (has right cva tenderness to percussion , none on left ); no hydrocele, no hernia and no phimosis some blood at meatus, urine is pink in tubing. taveras in place. Results & Data Vital Signs (Past 12 Hours) Vital Signs Temp Pulse Pulse Resp BP BP BP 10/18/18 19:03 37.2 C 65 18 137/75 10/18/18 15:12 63 10/18/18 14:56 36.9 C 65 20 132/74 10/18/18 14:27 62 17 126/78 10/18/18 13:14 58 L 17 135/73 10/18/18 10:38 10/18/18 10:29 10/18/18 10:21 36.8 C 63 20 149/84 H 10/18/18 10:00 149/84 H Pulse Ox 10/18/18 19:03 91 10/18/18 15:12 10/18/18 14:56 95 10/18/18 14:27 94 10/18/18 13:14 96 10/18/18 10:38 90 10/18/18 10:29 93 10/18/18 10:21 92 10/18/18 10:00 91
[2018-10-18] MEDS: TAMSULOSIN HCL 0.4 MG CAP PO SCH (21:58)
[2018-10-18 22:18] LABS: BUN Creatinine Ratio 19.5 (10-20); Calcium 8.3 mg/dl (8.5-10.1); Est GFR (Non-African American) 24.1; Potassium 3.7 mmol/L (3.5-5.1)
[2018-10-19] MEDS: SODIUM CHLORIDE 0.9% 1000ML 1,000 ML IV SCH ×2 (08:32→16:38)
[2018-10-19] MEDS: FINASTERIDE 5 MG TAB PO SCH (08:36)
[2018-10-19] MEDS: HEPARIN SOD 5,000 UNIT/0.5 ML VIAL SQ SCH ×2 (08:36→20:05)
[2018-10-19] MEDS: MEMANTINE HCL 10 MG TAB PO SCH (08:36)
[2018-10-19 10:01] LABS: Basophils # (auto) 0.03 K/uL (0-0.2); Basophils % (auto) 0.3 %; Eosinophils # (auto) 0.18 K/uL (0-0.5); Eosinophils % (auto) 2.1 %; Hematocrit (blood only) 44.8 % (42-52); Immature Granulocytes # (auto) 0.04 K/uL (0.00-0.02); Immature Granulocytes % (auto) 0.5 %; Lymphocytes # (auto) 1.39 K/uL (1.2-3.4); Lymphocytes % (auto) 16.1 %; Mean Corpuscular Hgb Conc 35.7 g/dL (32-36); Mean Platelet Volume 10.8 fL (7.4-10.4); Monocytes # (auto) 0.76 K/uL (0.11-0.59); Monocytes % (auto) 8.8 %; Neutrophils # (auto) 6.25 K/uL (1.4-6.5); Neutrophils % (auto) 72.2 %; Platelet Count 110 K/uL (130-400); RDW Coefficient of Variation 13.1 % (11.5-14.5); RDW Standard Deviation 43.6 fL (36.4-46.3); Red Blood Count 4.87 M/uL (4.7-6.1); White Blood Count 8.65 K/uL (4.8-10.8)
--- NOTE | 2018-10-19 10:24 | Nephrology Consultation ---
Date of Consultation October 19, 2018 Assessment & Plan (1) Acute kidney injury: Patient with acute kidney injury likely due to obstructive uropathy. Given finding of bone lesions on CT scan multiple myeloma is a possibility although less likely given normal hemoglobin and drop is improving creatinine with the relief of obstruction. Urine protein and serologies are pending. Urology input appreciated. Monitor input output. Agree with current IV fluids with normal saline at 125 mL/h. Monitor respiratory status and avoid volume overload. Monitor with daily BMP and avoid nephrotoxins. (2) Urinary retention: Due to BPH. Urologist suggested conservative management for now and possibly TURP as an outpatient. Patient started on finasteride and Flomax. (3) Hypertension: BP is above target but acceptable. He also has bradycardia. Would hold off on antihypertensive agents at the moment. (4) Hematuria: Likely due to bladder decompression. Will repeat UA tomorrow and if persistent might need further evaluation. History of Present Illness Reason for Consultation: Acute kidney injury Requesting Physician: Breonna Davidson MD Attending Physician: Jairo Finn MD History of Present Illness Patient is an 83-year-old male with history of dyslipidemia, dementia, BPH, prostate cancer and other problems presents with history of generalized weakness, change in mental status, decreased urinary output, left flank pain, poor appetite. Patient able to answer questions but history is limited due to dementia. Most of the history is obtained by reviewing medical records and speaking to care providers. Patient was noted to have GISEL with creatinine elevated at 6.57, BUN 75. CT abdomen showed mild bilateral hydroureteronephrosis, findings suggestive of chronic outlet obstruction due to enlarged prostate. Incidental findings of lucent lesions within the ribs noted suggestive of possible developing multiple myeloma. Haq catheter was placed and patient started making urine with output of 3 L in the past 24 hours and net -800 mL. His creatinine is improved to 2.4. He feels better this morning denies any pain no shortness of breath. No vomiting or diarrhea. Allergies Allergy/AdvReac Type Severity Reaction Status Date / Time caffeine Allergy Mild RASH Verified 10/18/18 10:48 orange Allergy Mild RASH Verified 10/18/18 10:48 sucrose Allergy Mild RASH Verified 10/18/18 10:48 Phosphoric Acid Allergy Mild RASH Uncoded 10/18/18 10:48 Home Medications Home Medications Medication Instructions Recorded Confirmed Type memantine 10 mg PO BID 10/18/18 10/18/18 History Patient History Medical History Bladder catheter infection (Acute) Dementia (Chronic) BPH (benign prostatic hyperplasia) Prostate cancer Surgical History H/O inguinal hernia repair Family History Unknown Family history non-contributory Social History Preferred Language: Congolese Communication Ability: Effective Recruiting Specialist Required: No Beliefs That Will Affect Care: None marital status: Current Living Situation: Spouse current occupational status: retired Other Information That Helps Us Care for You: No Feels Safe at Home: Yes Safety Concerns: Feels Safe At This Time Smoking Status: Never smoker Do You Dip or Chew Tobacco: No Second Hand Exposure: No Tobacco Cessation Education Requested by Patient: No Hx Alcohol Use: No Hx Substance Use: No Review of Systems Review of Systems: All systems reviewed & are unremarkable except as noted in HPI & below Physical Exam Physical Exam: General exam: Appears comfortable, no acute distress HEENT: Pupils are equal and reactive to light Neck: No JVD, neck is supple trachea is midline Respiratory system: Clear breath sounds bilaterally. Gastrointestinal: Abdomen is soft, non distended, non tender, bowel sounds are present. Haq catheter CVS: Regular rate and rhythm. No murmurs, rubs or gallops Musculoskeletal: No joint or muscle tenderness Extremities: Non tender, no edema, peripheral pulses are present Neuro: Orientedx1, no tremors, no focal neurological deficits Skin: No rashes Results & Data Vital Signs (Past 12 Hours) Vital Signs Temp Pulse Pulse Resp BP Pulse Ox 10/19/18 07:03 36.9 C 48 L 18 158/68 H 93 10/19/18 03:35 35.9 C L 69 18 155/73 H 94 10/18/18 23:38 36.1 C L 66 20 169/89 H 94 10/18/18 22:20 64 Laboratory Results Laboratory Results - last 24 hr 10/18/18 10/18/18 10/18/18 10:10 10:22 10:22 WBC 9.73 RBC 5.02 Hgb 16.5 Hct 46.6 MCV 92.8 MCH 32.9 MCHC 35.4 RDW Std Deviation 46.1 RDW Coeff of Shahbaz 13.6 Plt Count 103 L MPV 11.1 H Immature Gran % (Auto) 0.5 Neut % (Auto) 71.0 Lymph % (Auto) 14.3 Traill % (Auto) 11.2 Eos % (Auto) 2.8 Baso % (Auto) 0.2 Immature Gran # (Auto) 0.05 H Neut # (Auto) 6.91 H Lymph # (Auto) 1.39 Traill # (Auto) 1.09 H Eos # (Auto) 0.27 Baso # (Auto) 0.02 Absolute Nucleated RBC 0.00 Nucleated RBC % (auto) 0.0 Peripher Smr Path Cons Pending PT INR Sodium 138 Potassium 4.2 Chloride 104 Carbon Dioxide 22 Anion Gap 12.0 H BUN 75 H Creatinine 6.57 H* Est Cr Clr Drug Dosing 10.0 Est GFR ( Amer) 8.4 Est GFR (Non-Af Amer) 7.2 BUN/Creatinine Ratio 11.4 Glucose 113 H Calcium 8.5 Magnesium Total Bilirubin 1.9 H AST 31 ALT 26 Alkaline Phosphatase 96 Total Creatine Kinase Troponin I C-Reactive Protein Total Protein 6.4 Total Protein (PEP) Albumin 2.7 L Albumin (PEP) Globulin 3.7 Albumin/Globulin Ratio 0.7 L Vwzam-1-Tdwqqeixc Cpjbw-5-Cdrkhdbbv Xlak-9-Wonfofgf Advm-0-Peiwmnlv Gamma Globulins Monoclonal Peak 3 Ser Monoclonl Protein Ser Monoclonal Prot 2 PEP Interpretation Procalcitonin TSH 1.960 Urine Color Dark Yellow Urine Appearance Clear Urine pH 5.0 Ur Specific Velpen 1.018 Urine Protein Negative Urine Glucose (UA) Negative Urine Ketones Negative Urine Blood 3+ H Urine Nitrite Negative Urine Bilirubin Negative Urine Urobilinogen Negative Ur Leukocyte Esterase 1+ H Urine WBC (Auto) 1-5 Urine RBC (Auto) 0-4 U Hyaline Cast (Auto) 0 U Epithel Cells (Auto) 0-5 Urine Bacteria (Auto) Negative U Random Total Protein Ur Creatinine mg/dL Protein/Creatinin Ratio Urine Albumin (%) U Fikug-0-Oavyqppb (%) U Kmxrw-2-Pmerotbf (%) U Beta Globulin (%) U Nnmo-3-Vevippjuvsvdc U Gamma Globulin (%) Urine PEP Interpret 10/18/18 10/18/18 10/18/18 10:22 10:22 10:22 WBC RBC Hgb Hct MCV MCH MCHC RDW Std Deviation RDW Coeff of Shahbaz Plt Count MPV Immature Gran % (Auto) Neut % (Auto) Lymph % (Auto) Traill % (Auto) Eos % (Auto) Baso % (Auto) Immature Gran # (Auto) Neut # (Auto) Lymph # (Auto) Traill # (Auto) Eos # (Auto) Baso # (Auto) Absolute Nucleated RBC Nucleated RBC % (auto) Peripher Smr Path Cons PT INR Sodium Potassium Chloride Carbon Dioxide Anion Gap BUN Creatinine Est Cr Clr Drug Dosing Est GFR ( Amer) Est GFR (Non-Af Amer) BUN/Creatinine Ratio Glucose Calcium Magnesium Total Bilirubin AST ALT Alkaline Phosphatase Total Creatine Kinase 25 L Cancelled Troponin I 0.022 C-Reactive Protein 4.01 H Cancelled Total Protein Total Protein (PEP) Albumin Albumin (PEP) Globulin Albumin/Globulin Ratio Bbmux-0-Oywofsxov Eothn-4-Hsipgklpv Cnbt-0-Ofvzxplt Wavs-9-Bzobhvhf Gamma Globulins Monoclonal Peak 3 Ser Monoclonl Protein Ser Monoclonal Prot 2 PEP Interpretation Procalcitonin 0.23 TSH Urine Color Urine Appearance Urine pH Ur Specific Velpen Urine Protein Urine Glucose (UA) Urine Ketones Urine Blood Urine Nitrite Urine Bilirubin Urine Urobilinogen Ur Leukocyte Esterase Urine WBC (Auto) Urine RBC (Auto) U Hyaline Cast (Auto) U Epithel Cells (Auto) Urine Bacteria (Auto) U Random Total Protein Ur Creatinine mg/dL Protein/Creatinin Ratio Urine Albumin (%) U Wlbvv-8-Ipufbhdt (%) U Ljqli-2-Raeqmtqr (%) U Beta Globulin (%) U Zooo-3-Hqqelzubvkyji U Gamma Globulin (%) Urine PEP Interpret 10/18/18 10/18/18 10/18/18 10:22 10:22 10:22 WBC RBC Hgb Hct MCV MCH MCHC RDW Std Deviation RDW Coeff of Shahbaz Plt Count MPV Immature Gran % (Auto) Neut % (Auto) Lymph % (Auto) Traill % (Auto) Eos % (Auto) Baso % (Auto) Immature Gran # (Auto) Neut # (Auto) Lymph # (Auto) Traill # (Auto) Eos # (Auto) Baso # (Auto) Absolute Nucleated RBC Nucleated RBC % (auto) Peripher Smr Path Cons Cancelled PT 11.9 INR 1.2 H Sodium Potassium Chloride Carbon Dioxide Anion Gap BUN Creatinine Est Cr Clr Drug Dosing Est GFR ( Amer) Est GFR (Non-Af Amer) BUN/Creatinine Ratio Glucose Calcium Magnesium Total Bilirubin AST ALT Alkaline Phosphatase Total Creatine Kinase Troponin I C-Reactive Protein Total Protein Total Protein (PEP) Pending Albumin Albumin (PEP) Pending Globulin Albumin/Globulin Ratio Yqmll-0-Jlifnyxkx Pending Ezjvf-3-Stjbnpndu Pending Zloy-8-Ewyggmge Pending Uqad-9-Stswbhfi Pending Gamma Globulins Pending Monoclonal Peak 3 Pending Ser Monoclonl Protein Pending Ser Monoclonal Prot 2 Pending PEP Interpretation Pending Procalcitonin TSH Urine Color Urine Appearance Urine pH Ur Specific Velpen Urine Protein Urine Glucose (UA) Urine Ketones Urine Blood Urine Nitrite Urine Bilirubin Urine Urobilinogen Ur Leukocyte Esterase Urine WBC (Auto) Urine RBC (Auto) U Hyaline Cast (Auto) U Epithel Cells (Auto) Urine Bacteria (Auto) U Random Total Protein Ur Creatinine mg/dL Protein/Creatinin Ratio Urine Albumin (%) U Xlytr-2-Bprkqvoy (%) U Mxomj-1-Kjgnfnat (%) U Beta Globulin (%) U Ckuf-4-Fqbixbytenynx U Gamma Globulin (%) Urine PEP Interpret 10/18/18 10/18/18 10/19/18 15:32 21:13 09:49 WBC 8.65 RBC 4.87 Hgb 16.0 Hct 44.8 MCV 92.0 MCH 32.9 MCHC 35.7 RDW Std Deviation 43.6 RDW Coeff of Shahbaz 13.1 Plt Count 110 L MPV 10.8 H Immature Gran % (Auto) 0.5 Neut % (Auto) 72.2 Lymph % (Auto) 16.1 Traill % (Auto) 8.8 Eos % (Auto) 2.1 Baso % (Auto) 0.3 Immature Gran # (Auto) 0.04 H Neut # (Auto) 6.25 Lymph # (Auto) 1.39 Traill # (Auto) 0.76 H Eos # (Auto) 0.18 Baso # (Auto) 0.03 Absolute Nucleated RBC Nucleated RBC % (auto) Peripher Smr Path Cons PT INR Sodium 142 Potassium 3.7 Chloride 110 H Carbon Dioxide 22 Anion Gap 10.0 BUN 47 H Creatinine 2.42 H D Est Cr Clr Drug Dosing 27.0 Est GFR ( Amer) 28.0 Est GFR (Non-Af Amer) 24.1 BUN/Creatinine Ratio 19.5 Glucose 105 H Calcium 8.3 L Magnesium Total Bilirubin AST ALT Alkaline Phosphatase Total Creatine Kinase Troponin I C-Reactive Protein Total Protein Total Protein (PEP) Albumin Albumin (PEP) Globulin Albumin/Globulin Ratio Ijexr-7-Vepyuihrr Urdmi-4-Glhdqqnrl Anqz-9-Lawkbrsx Qgmi-1-Cninphby Gamma Globulins Monoclonal Peak 3 Ser Monoclonl Protein Ser Monoclonal Prot 2 PEP Interpretation Procalcitonin TSH Urine Color Urine Appearance Urine pH Ur Specific Velpen Urine Protein Urine Glucose (UA) Urine Ketones Urine Blood Urine Nitrite Urine Bilirubin Urine Urobilinogen Ur Leukocyte Esterase Urine WBC (Auto) Urine RBC (Auto) U Hyaline Cast (Auto) U Epithel Cells (Auto) Urine Bacteria (Auto) U Random Total Protein Pending Ur Creatinine mg/dL Pending Protein/Creatinin Ratio Pending Urine Albumin (%) Pending U Rbknb-4-Tifwzefq (%) Pending U Yqwye-7-Etmbfcug (%) Pending U Beta Globulin (%) Pending U Bcrr-7-Vfomztdtfwktn Pending U Gamma Globulin (%) Pending Urine PEP Interpret Pending 10/19/18 09:49 WBC RBC Hgb Hct MCV MCH MCHC RDW Std Deviation RDW Coeff of Shahbaz Plt Count MPV Immature Gran % (Auto) Neut % (Auto) Lymph % (Auto) Traill % (Auto) Eos % (Auto) Baso % (Auto) Immature Gran # (Auto) Neut # (Auto) Lymph # (Auto) Traill # (Auto) Eos # (Auto) Baso # (Auto) Absolute Nucleated RBC Nucleated RBC % (auto) Peripher Smr Path Cons PT INR Sodium Pending Potassium Pending Chloride Pending Carbon Dioxide Pending Anion Gap Pending BUN Pending Creatinine Pending Est Cr Clr Drug Dosing Pending Est GFR ( Amer) Pending Est GFR (Non-Af Amer) Pending BUN/Creatinine Ratio Pending Glucose Pending Calcium Pending Magnesium Pending Total Bilirubin Pending AST Pending ALT Pending Alkaline Phosphatase Pending Total Creatine Kinase Troponin I C-Reactive Protein Total Protein Pending Total Protein (PEP) Albumin Pending Albumin (PEP) Globulin Pending Albumin/Globulin Ratio Pending Vhnjl-4-Itngmgxjo Bofph-2-Gpxmmbppi Womd-6-Pxwmefnd Wpod-4-Bhdemvpi Gamma Globulins Monoclonal Peak 3 Ser Monoclonl Protein Ser Monoclonal Prot 2 PEP Interpretation Procalcitonin TSH Urine Color Urine Appearance Urine pH Ur Specific Velpen Urine Protein Urine Glucose (UA) Urine Ketones Urine Blood Urine Nitrite Urine Bilirubin Urine Urobilinogen Ur Leukocyte Esterase Urine WBC (Auto) Urine RBC (Auto) U Hyaline Cast (Auto) U Epithel Cells (Auto) Urine Bacteria (Auto) U Random Total Protein Ur Creatinine mg/dL Protein/Creatinin Ratio Urine Albumin (%) U Ovvyj-2-Ftsiglry (%) U Mhejt-2-Wmymgfcg (%) U Beta Globulin (%) U Uohh-0-Jlmcwzdtlmcbi U Gamma Globulin (%) Urine PEP Interpret Diagnostic Findings CT abdomen showing moderate bilateral hydronephrosis
[2018-10-19 10:42] LABS: Albumin Globulin Ratio 0.7 (0.9-2); Albumin Level 2.5 gm/dl (3.4-5.0); BUN Creatinine Ratio 25.6 (10-20); Bilirubin,Total 1.6 mg/dl (0.2-1); Calcium 8.2 mg/dl (8.5-10.1); Creatinine Clr Calc Pharmacy 52.3 ml/min; Est GFR (African American) 62.2; Est GFR (Non-African American) 53.7; Globulin 3.6 gm/dl (2.5-4.0); Magnesium 2.1 mg/dl (1.8-2.4); Potassium 3.6 mmol/L (3.5-5.1); Total Protein 6.1 gm/dl (6.4-8.2)
--- NOTE | 2018-10-19 11:33 | Ultrasound Report ---
US renal/blad retro comp HISTORY: 83 years-old Male Obstructive Uropathy follow-up study in a patient with mild bilateral hyd roureteronephrosis, prostamegaly with suggested chronic bladder outlet obstruction. COMPARISON: CT abdomen and pelvis 10/18/2018 TECHNIQUE: Multiple real time sonographic images of the kidneys and urinary bladder were obtained ass essing grayscale appearance and color flow FINDINGS: Right kidney measures 10.5 cm in length. No right-sided renal calculi or hydronephrosis. The left kid brady measures 11.9 cm in length and also demonstrates no renal calculi or hydronephrosis. Decompressed urinary bladder. Enlarged prostate is better seen on comparison CT. IMPRESSION: 1. Resolution of the previously described bilateral mild hydronephrosis. 2. Haq catheter noted within a decompressed urinary bladder lumen. 3. Prostamegaly. The above report was generated using voice recognition software. It may contain grammatical, syntax o r spelling errors. Electronically signed by: Manolo Bradley M.D. 10/19/2018 11:31 AM
--- NOTE | 2018-10-19 12:34 | Urology Progress Note ---
Date of Service October 19, 2018 Assessment & Plan (1) Urinary retention: acute urinary retention seems secondary to bladder outlet obstruction now relieved by taveras hematuria has resolved His says the finasteride prescription so he has not been on it. His outpatient chart shows current refills were written so need to speak with [facility]. needs to stay on finasteride 5mg daily forever. will hold off on psa for now. Will need to determine manager terminal plan for bladder outlet obstruction with family. We will try an office void trial in 3 weeks. As dementia advances Taveras catheters become very problematic. He might need to consider bladder outlet surgery like TURP as outpatient. will follow labs labs improved. Subjective patient sitting up in bed, at bedside. He offers no complaint. had an uneventful night. Taveras draining well. He has not tried to remove the taveras. He is not eating his dinner. Is not interested. His labs are much improved. Review of Systems Review of Systems: patient has no pain, no nausea, no emesis, no fever, + cough, + excess saliva. Physical Exam Constitutional: WD/WN, vitals as above Genitourinary: taveras draining harish urine, no blood. Circ phallus Results & Data Vital Signs (Past 12 Hours) Vital Signs Temp Pulse Pulse Resp BP Pulse Ox 10/19/18 12:06 66 10/19/18 07:03 36.9 C 48 L 18 158/68 H 93 10/19/18 03:35 35.9 C L 69 18 155/73 H 94
[2018-10-19] MEDS: cefTRIAXone SODIUM 2,000 MG in DEXTROSE 5% 50 ML IV SCH (14:31)
--- NOTE | 2018-10-19 17:47 | Hospitalist Progress Note ---
Date of Service October 19, 2018 Assessment & Plan (1) Acute kidney injury: Baseline creatinine 1.2 in July 2017. BUN and creatinine at the time of admission 75 and 6.57, respectively. Found to have urinary retention. Haq catheter placed with high urine output. CT of abdomen pelvis demonstrated bilateral hydronephrosis. Nephrology and urology consulted. Urine output greater than 3 L since Haq placement. Serum creatinine this morning down to 1.25. Decrease IV fluids. Watch for postobstructive diuresis / orthostasis. (2) Urinary retention: Suspected bladder outlet obstruction attributed to prostatomegaly. Urology consulted. Receiving finasteride and tamsulosin. Anticipate discharge home with Haq catheter and voiding trial in a few weeks. (3) Hematuria: Had gross hematuria which has resolved. Thought to be secondary to bladder distention. Further evaluation / management per Urology. (4) Dementia: Progressive dementia for several years. Prescribed memantine but discontinued because of no apparent benefit. Underlying pathophysiology? Family history of Alzheimer's disease. Has some parkinsonian features, consider Parkinson's disease. Outpatient follow-up with Neurology. (5) Rib lesion: Few small lucent rib lesions incidentally noted on CT of abdomen. Rule out multiple myeloma. SPEP and UPEP are pending. (6) Do not resuscitate status: Per advanced directives. (7) DVT prophylaxis: SQ heparin. Ambulate. (8) Discharge planning issues: Anticipated discharge to home, perhaps with services. Family Medicine follow-up with Dr. Monaco. Urology follow-up with Dr. Hamlin. Neurology follow-up with Dr. Byrd. Subjective Recheck for multiple problems. Patient seen in their room around 14:20. visiting. Patient admitted yesterday with acute kidney injury secondary to obstructive uropathy. Haq catheter inserted with good urine output. Patient has underlying dementia is not able to offer very much information. reports decreased urine output started just a couple days prior to admission. He had been prescribed finasteride in the past for BPH, but apparently had not been recently taking it. Review of Systems: Constitutional- no fever. Cardiac- no chest pain. Pulmonary- no cough or SOB. GI- no nausea, vomiting, diarrhea, melena, hematochezia. -as noted above. Lhvjp-ahpeo-cqxd memory loss. Otherwise, as noted above. Physical Exam Constitutional: no acute distress ENMT: excessive salivation Respiratory: no respiratory distress Auscultation: lungs clear to auscultation bilaterally Cardiovascular: Rate/Rhythm: regular rate and regular rhythm Vessels: no JVD Extremities: no calf tenderness and no edema Gastrointestinal (Abdomen): normal bowel sounds, soft, nontender, no hepatosplenomegaly Skin: no rashes, warm and dry Neurologic: somewhat masked feces, moderate cogwheel rigidity of upper extremities Psychiatric: Orientation: alert and oriented to person; + not oriented to place and + not oriented to time Results & Data Vital Signs (Past 12 Hours) Vital Signs Temp Pulse Pulse Resp BP Pulse Ox 10/19/18 15:38 37.0 C 66 16 144/75 H 92 10/19/18 12:06 66 10/19/18 07:03 36.9 C 48 L 18 158/68 H 93
[2018-10-19] MEDS: TAMSULOSIN HCL 0.4 MG CAP PO SCH (20:04)
[2018-10-20] MEDS: SODIUM CHLORIDE 0.9% 1000ML 1,000 ML IV SCH ×2 (00:26→20:37)
[2018-10-20 07:25] LABS: Hematocrit (blood only) 42.4 % (42-52); Hemoglobin 14.9 g/dL (14.0-18.0); Mean Corpuscular Hgb Conc 35.1 g/dL (32-36); Mean Corpuscular Volume 92.4 fL (80-100); Mean Platelet Volume 10.5 fL (7.4-10.4); Platelet Count 119 K/uL (130-400); RDW Coefficient of Variation 13.2 % (11.5-14.5); RDW Standard Deviation 44.4 fL (36.4-46.3); Red Blood Count 4.59 M/uL (4.7-6.1)
[2018-10-20 07:47] LABS: BUN Creatinine Ratio 18.8 (10-20); Calcium 8.4 mg/dl (8.5-10.1); Creatinine Clr Calc Pharmacy 66.5 ml/min; Est GFR (African American) 92.5; Est GFR (Non-African American) 79.8
[2018-10-20] MEDS: HEPARIN SOD 5,000 UNIT/0.5 ML VIAL SQ SCH ×2 (08:29→20:41)
[2018-10-20] MEDS: FINASTERIDE 5 MG TAB PO SCH (08:29)
--- NOTE | 2018-10-20 18:16 | Nephrology Progress Note ---
Date of Service October 20, 2018 Assessment & Plan (1) Acute kidney injury: Patient with acute kidney injury likely due to obstructive uropathy. Given finding of bone lesions on CT scan multiple myeloma is a possibility although less likely given normal hemoglobin and drop is improving creatinine with the relief of obstruction. Urine protein and serologies are pending. Urology input appreciated. Renal function back to normal. Monitor with daily BMP and avoid nephrotoxins. Renal will sign off. Please reconsult if additional questions or concerns. (2) Urinary retention: Due to BPH. Urologist suggested conservative management for now and pos sibly TURP as an outpatient. Patient started on finasteride and Flomax. (3) Hypertension: BP is above target but acceptable. He also has bradycardia. Would hold off on antihypertensive agents at the moment. (4) Hematuria: Likely due to bladder decompression. Will repeat UA tomorrow and if persistent might need further evaluation. Subjective Patient seen in follow-up for obstructive uropathy. Patient is delirious this morning. Unable to give history. Renal function is improved with Haq catheterization. Review of Systems Review of Systems: Unobtainable due to cognitive status Physical Exam Physical Exam: General exam: Appears comfortable, no acute distress HEENT: Pupils are equal and reactive to light Neck: No JVD, neck is supple trachea is midline Respiratory system: Clear breath sounds bilaterally. Gastrointestinal: Abdomen is soft, non distended, non tender, bowel sounds are present CVS: Regular rate and rhythm. No murmurs, rubs or gallops Musculoskeletal: No joint or muscle tenderness Extremities: Non tender, no edema, peripheral pulses are present Neuro: Disoriented, no tremors, no focal neurological deficits Skin: No rashes Results & Data Vital Signs (Past 12 Hours) Vital Signs Temp Pulse Pulse Resp BP Pulse Ox 10/20/18 15:09 37.2 C 58 L 21 157/78 H 94 10/20/18 11:19 36.8 C 64 20 125/70 95 10/20/18 11:08 56 L 10/20/18 07:00 37.1 C 60 19 132/74 95 Laboratory Results Laboratory Results - last 24 hr 10/18/18 10/20/18 10/20/18 10:22 07:14 07:14 WBC 8.10 RBC 4.59 L Hgb 14.9 Hct 42.4 MCV 92.4 MCH 32.5 MCHC 35.1 RDW Std Deviation 44.4 RDW Coeff of Shahbaz 13.2 Plt Count 119 L MPV 10.5 H Peripher Smr Path Cons Sodium 143 Potassium 5.0 D Chloride 111 H Carbon Dioxide 25 Anion Gap 6.0 BUN 17 Creatinine 0.90 D Est Cr Clr Drug Dosing 66.5 Est GFR ( Amer) 92.5 Est GFR (Non-Af Amer) 79.8 BUN/Creatinine Ratio 18.8 Glucose 90 Calcium 8.4 L
[2018-10-20] MEDS: TAMSULOSIN HCL 0.4 MG CAP PO SCH (20:41)
--- NOTE | 2018-10-20 20:46 | Hospitalist Progress Note ---
Date of Service October 20, 2018 Assessment & Plan (1) Acute kidney injury: Baseline creatinine 1.2 in July 2017. BUN and creatinine at the time of admission 75 and 6.57, respectively. Found to have urinary retention. Haq catheter placed with high urine output. CT of abdomen pelvis demonstrated bilateral hydronephrosis. Nephrology and urology consulted. Urine output greater than 3 L since Haq placement. Serum creatinine this morning down to 0.90. Stop IV fluids. (2) Urinary retention: Suspected bladder outlet obstruction attributed to prostatomegaly / BPH. Urology consulted. Receiving finasteride and tamsulosin. Continue Haq catheter with voiding trial in a few weeks. (3) Hematuria: Had gross hematuria which has resolved. Thought to be secondary to bladder distention. Further evaluation / management per Urology. (4) Dementia: Progressive dementia for several years. Prescribed memantine but discontinued because of no apparent benefit. Underlying pathophysiology? Family history of Alzheimer's disease. Has some parkinsonian features, consider Parkinson's disease. MRI in 2010 showed atrophy and small vessel ischemic changes. Rib lesions raise possibility of metastatic disease. Don't believe that patient will tolerate MRI at this time. Check follow-up neuro imaging with CT to assess current neuroanatomy and r/o superimposed stroke or mass. Outpatient follow-up with Neurology. (5) Altered mental status: Underlying dementia with progression over past several years. Increasing confusion at time of admission, probable metabolic encephalopathy due to GISEL. More confused today despite improved renal function. Probable delirium, possibly due to change of environment. No apparent infection or other stressor. Follow. Avoid anticholinergic meds and other meds with CONDITIONER TUMBLER side effects when able. (6) Rib lesion: Few small lucent rib lesions incidentally noted on CT of abdomen. Rule out multiple myeloma. SPEP and UPEP are pending. (7) Do not resuscitate status: Per advanced directives. (8) DVT prophylaxis: SQ heparin. Ambulate. (9) Discharge planning issues: Functional status has been declining with more acute decline associated with current illness. Anticipated need for skilled care or inpt rehab. Case Management following. Family Medicine follow-up with Dr. Monaco. Urology follow-up with Dr. Hamlin. Neurology follow-up with Dr. Byrd. Subjective Recheck for multiple problems. Patient seen in their room around 14:10. visiting. Quiet today. Appears to be weak, somnolent, and more confused (although he is verbal and indicates that he would like to be left alone). No fever. No apparent cough, SOB, chest pain, nausea, vomiting, diarrhea. Tolerating Haq cath. Review of Systems Review of Systems: Unobtainable due to cognitive status Physical Exam Constitutional: no acute distress Respiratory: no respiratory distress Auscultation: lungs clear to auscultation bilaterally Cardiovascular: Rate/Rhythm: regular rate and regular rhythm Vessels: no JVD Extremities: no calf tenderness and no edema Gastrointestinal (Abdomen): normal bowel sounds, soft, nontender, no hepatosplenomegaly Skin: no rashes, warm and dry Psychiatric: Orientation: oriented to person; + not alert (somnolent), + not oriented to place and + not oriented to time Results & Data Vital Signs (Past 12 Hours) Vital Signs Temp Pulse Pulse Resp BP Pulse Ox 10/20/18 20:27 37.1 C 62 16 158/90 H 96 10/20/18 15:09 37.2 C 58 L 21 157/78 H 94 10/20/18 11:19 36.8 C 64 20 125/70 95 10/20/18 11:08 56 L Laboratory Results Laboratory Results - last 24 hr 10/18/18 10/20/18 10/20/18 10:22 07:14 07:14 WBC 8.10 RBC 4.59 L Hgb 14.9 Hct 42.4 MCV 92.4 MCH 32.5 MCHC 35.1 RDW Std Deviation 44.4 RDW Coeff of Shahbaz 13.2 Plt Count 119 L MPV 10.5 H Peripher Smr Path Cons Sodium 143 Potassium 5.0 D Chloride 111 H Carbon Dioxide 25 Anion Gap 6.0 BUN 17 Creatinine 0.90 D Est Cr Clr Drug Dosing 66.5 Est GFR ( Amer) 92.5 Est GFR (Non-Af Amer) 79.8 BUN/Creatinine Ratio 18.8 Glucose 90 Calcium 8.4 L
[2018-10-21 05:50] LABS: Hematocrit (blood only) 45.1 % (42-52); Hemoglobin 15.7 g/dL (14.0-18.0); Mean Corpuscular Hgb Conc 34.8 g/dL (32-36); Mean Platelet Volume 10.9 fL (7.4-10.4); Platelet Count 133 K/uL (130-400); RDW Coefficient of Variation 13.4 % (11.5-14.5); RDW Standard Deviation 45.3 fL (36.4-46.3); Red Blood Count 4.85 M/uL (4.7-6.1); White Blood Count 8.31 K/uL (4.8-10.8)
[2018-10-21 06:19] LABS: BUN Creatinine Ratio 14.4 (10-20); Est GFR (African American) 93.4; Est GFR (Non-African American) 80.6; Potassium 3.8 mmol/L (3.5-5.1)
[2018-10-21] MEDS: FINASTERIDE 5 MG TAB PO SCH (08:07)
[2018-10-21] MEDS: HEPARIN SOD 5,000 UNIT/0.5 ML VIAL SQ SCH ×2 (08:07→20:29)
--- NOTE | 2018-10-21 08:55 | Hospitalist Progress Note ---
Date of Service October 21, 2018 Assessment & Plan (1) Acute kidney injury: Likely obstructive Baseline creatinine 1.2 in July 2017. BUN and creatinine at the time of admission 75 and 6.57, respectively. -Found to have urinary retention --> Haq catheter placed with high urine output. -CT of abdomen pelvis demonstrated bilateral hydronephrosis. -Urine output greater than 3 L since Haq placement. -S/P IVF -Nephrology signed off -Urology on board (2) Urinary retention: Suspected bladder outlet obstruction attributed to prostatomegaly / BPH. -Receiving finasteride and tamsulosin. -Continue Haq catheter with voiding trial in 3 weeks per urology. -Urology on board- follow up with urology outpatient (3) Hematuria: -Had gross hematuria which has resolved. -Thought to be secondary to bladder distention. -Urology on board (4) Dementia: Progressive dementia for several years. Prescribed memantine but discontinued because of no apparent benefit. Underlying pathophysiology? Family history of Alzheimer's disease. -Has some parkinsonian features, consider Parkinson's disease. -MRI in 2010 showed atrophy and small vessel ischemic changes. -Rib lesions raise possibility of metastatic disease. -Don't believe that patient will tolerate MRI at this time. -Check follow-up neuro imaging with CT to assess current neuroanatomy and r/o superimposed stroke or mass. -Outpatient follow-up with Neurology. (5) Altered mental status: -Underlying dementia with progression over past several years. -Increasing confusion at time of admission, probable metabolic encephalopathy due to GISEL. -Probable delirium, possibly due to change of environment. -No apparent infection or other stressor. -Avoid anticholinergic meds and other meds with DUMPCART DRIVER side effects when able. (6) Rib lesion: -Few small lucent rib lesions incidentally noted on CT of abdomen. -Rule out multiple myeloma. -SPEP and UPEP are pending. Follow up outpatient (7) Do not resuscitate status: --Per advanced directives. (8) DVT prophylaxis: -SQ heparin. -Ambulate. (9) Discharge planning issues: -Functional status has been declining with more acute decline associated with current illness. -Anticipated need for skilled care or inpt rehab. -Family Medicine follow-up with Dr. Monaco. -Urology follow-up with Dr. Hamlin. -Neurology follow-up with Dr. Byrd. Okay to discharge from medical point of view. Awaiting placement. Subjective Patient just had a bath. Upset about it. Disoriented x3. No overnight events. Afebrile Physical Exam Physical Exam: GENERAL-awake, alert, disoriented x3 LUNGS- Air entry bilaterally equal. No rales, rhonchi, crackles, wheezes heard. HEART- Regular rate and rhythm. No murmurs EXTREMITIES- Good peripheral pulses, no edema - Haq's catheter in situ Results & Data Vital Signs (Past 12 Hours) Vital Signs Temp Pulse Pulse Resp BP BP Pulse Ox 10/21/18 08:14 37.1 C 63 20 176/93 H 94 10/21/18 04:18 36.6 C 61 16 149/86 H 95 10/21/18 00:21 147/89 H 10/20/18 23:30 54 L 10/20/18 23:02 37 C 65 16 163/73 H 94 10/20/18 21:10 57 L
[2018-10-21] MEDS: SODIUM CHLORIDE 0.9% 1000ML 1,000 ML IV SCH (16:22)
[2018-10-21 18:49] LABS: Alpha 1 Globulin 0.4 G/DL (0.2-0.3); Alpha 2 Globulin 1.1 G/DL (0.5-0.9); Beta-1-Globulin 0.3 G/DL (0.4-0.6); Beta-2-Globulin 0.3 G/DL (0.2-0.5); Gamma Globulin 0.8 G/DL (0.8-1.7); Monoclonal Protein Band 1 DNR G/DL (NOT DETECTED); Monoclonal Protein Band 2 DNR G/DL (NOT DETECTED); Monoclonal Protein Band 3 DNR G/DL (NOT DETECTED)
[2018-10-21] MEDS: TAMSULOSIN HCL 0.4 MG CAP PO SCH (20:29)
[2018-10-22] MEDS: HEPARIN SOD 5,000 UNIT/0.5 ML VIAL SQ SCH ×2 (07:33→20:48)
[2018-10-22] MEDS: FINASTERIDE 5 MG TAB PO SCH (07:33)
[2018-10-22 07:58] LABS: BUN Creatinine Ratio 13.2 (10-20); Calcium 8.6 mg/dl (8.5-10.1); Creatinine Clr Calc Pharmacy 76.7 ml/min; Est GFR (African American) 98.1; Est GFR (Non-African American) 84.7; Potassium 4.1 mmol/L (3.5-5.1)
[2018-10-22] MEDS: SODIUM CHLORIDE 0.9% 1000ML 1,000 ML IV SCH (12:41)
--- NOTE | 2018-10-22 16:03 | Hospitalist Progress Note ---
Date of Service October 22, 2018 Assessment & Plan (1) Acute kidney injury: Likely obstructive Baseline creatinine 1.2 in July 2017. BUN and creatinine at the time of admission 75 and 6.57, respectively. -Found to have urinary retention --> Haq catheter placed with high urine output. -CT of abdomen pelvis demonstrated bilateral hydronephrosis. -Urine output greater than 3 L since Haq placement. -S/P IVF -Nephrology signed off -Urology on board (2) Urinary retention: Suspected bladder outlet obstruction attributed to prostatomegaly / BPH. -Receiving finasteride and tamsulosin. -Continue Haq catheter with voiding trial in 3 weeks per urology. -Urology on board- follow up with urology outpatient (3) Hematuria: -Had gross hematuria which has resolved. -Thought to be secondary to bladder distention. -Urology on board (4) Dementia: Progressive dementia for several years. Prescribed memantine but discontinued because of no apparent benefit. Underlying pathophysiology? Family history of Alzheimer's disease. -Has some parkinsonian features, consider Parkinson's disease. -MRI in 2010 showed atrophy and small vessel ischemic changes. -Rib lesions raise possibility of metastatic disease. -Don't believe that patient will tolerate MRI at this time. -Check follow-up neuro imaging with CT to assess current neuroanatomy and r/o superimposed stroke or mass. -Outpatient follow-up with Neurology. (5) Altered mental status: -Underlying dementia with progression over past several years. -Increasing confusion at time of admission, probable metabolic encephalopathy due to GISEL. -Probable delirium, possibly due to change of environment. -No apparent infection or other stressor. -Avoid anticholinergic meds and other meds with STAFF REGISTERED NURSE side effects when able. (6) Rib lesion: -Few small lucent rib lesions incidentally noted on CT of abdomen. -Rule out multiple myeloma. -SPEP and UPEP are pending. Follow up outpatient (7) Do not resuscitate status: --Per advanced directives. (8) DVT prophylaxis: -SQ heparin. -Ambulate. (9) Discharge planning issues: -Functional status has been declining with more acute decline associated with current illness. -Anticipated need for skilled care or inpt rehab. -Family Medicine follow-up with Dr. Monaco. -Urology follow-up with Dr. Hamlin. -Neurology follow-up with Dr. Byrd. Okay to discharge from medical point of view. Awaiting placement. Per CM, bed available at [facility] tomorrow. Updated by bedside Subjective Patient is doing much better. No events overnight. Today also he has been calm and comfortable. by bedside. Did feed himself. No agitation. Not required any meds to control agitation Off 1:1 observation Physical Exam Physical Exam: GENERAL- Awake, alert, disoriented x 2 LUNGS- Air entry bilaterally equal. No rales, rhonchi, crackles, wheezes heard. HEART- Regular rate and rhythm. No murmurs EXTREMITIES- Good peripheral pulses, no edema NEUROMUSCULAR- Grossly moving all extremities Results & Data Vital Signs (Past 12 Hours) Vital Signs Temp Pulse Resp BP Pulse Ox 10/22/18 05:46 36.6 C 61 18 158/84 H 93
[2018-10-22 17:39] LABS: Creatinine Ur 166 MG/DL (20-320); Protein, Urine Random 66 MG/DL (5-25); Urine Protein/Creatinine Ratio 398 (22-128)
[2018-10-22] MEDS: TAMSULOSIN HCL 0.4 MG CAP PO SCH (20:48)
[2018-10-23] MEDS: FINASTERIDE 5 MG TAB PO SCH (09:00)
[2018-10-23 09:20] LABS: BUN Creatinine Ratio 12.8 (10-20); Calcium 8.4 mg/dl (8.5-10.1); Creatinine Clr Calc Pharmacy 85.5 ml/min; Est GFR (African American) 102.6; Est GFR (Non-African American) 88.5; Potassium 3.7 mmol/L (3.5-5.1)
[2018-10-23] MEDS: SODIUM CHLORIDE 0.9% 1000ML 1,000 ML IV SCH (10:18)
[2018-10-23] MEDS: HEPARIN SOD 5,000 UNIT/0.5 ML VIAL SQ SCH (10:19)
--- NOTE | 2018-10-23 10:31 | Hospitalist Progress Note ---
Date of Service October 23, 2018 Assessment & Plan (1) Acute kidney injury: Obstructive etiology - secondary to urinary retention Baseline creatinine 1.2 in July 2017. Presented with creatinine of 6.57 -Found to have urinary retention --> Haq catheter placed with high urine output- > 3 L since foleys placement. -CT of abdomen pelvis demonstrated bilateral hydronephrosis. -S/P IVF -Nephrology signed off -Urology signed off. (2) Urinary retention: Suspected bladder outlet obstruction attributed to prostatomegaly / BPH. -Receiving finasteride and tamsulosin. -Continue Haq catheter with voiding trial in 3 weeks per urology. -Follow up with urology outpatient (3) Hematuria: RESOLVED -Had gross hematuria which has resolved. -Thought to be secondary to bladder distention. -Urology on board (4) Dementia: Progressive dementia for several years. Prescribed memantine but discontinued because of no apparent benefit Underlying pathophysiology? Family history of Alzheimer's disease. -Has some parkinsonian features, consider Parkinson's disease. -MRI in 2010 showed atrophy and small vessel ischemic changes. -Rib lesions raise possibility of metastatic disease. -Check follow-up neuro imaging with CT to assess current neuroanatomy and r/o superimposed stroke or mass. -Outpatient follow-up with Neurology. (5) Altered mental status: Improved -Underlying dementia with progression over past several years. -Increasing confusion at time of admission, probable metabolic encephalopathy due to GISEL. -Probable delirium, possibly due to change of environment. -No apparent infection or other stressor. -Avoid anticholinergic meds and other meds with OIL WELL CABLE TOOL OPERATOR side effects when able. (6) Rib lesion: -Few small lucent rib lesions incidentally noted on CT of abdomen. -Rule out multiple myeloma. D/D considered- Metastatic disease. -SPEP and UPEP are pending. Follow up outpatient -Had a detailed discussion with patient's - Will follow up the tests ordered, but do not want additional diagnostic or therapeutic intervention for this even if it is cancer. (7) Do not resuscitate status: --Per advanced directives. --No aggressive or heroic measures. Comfort is the goal. Avoid frequent hospitalizations. (8) DVT prophylaxis: -SQ heparin. -Ambulate. (9) Discharge planning issues: Plan is to discharge to [facility] today -Family Medicine follow-up with Dr. Oesterling. -Urology follow-up with Dr. Hamlin. -Neurology follow-up with Dr. Byrd. by bedside and aware about discharge plan. Subjective Patient is doing much better. No events overnight. Has been calm and comfortable by bedside. Did feed himself. No agitation. Not required any meds to control agitation Off 1:1 observation since few days Physical Exam Physical Exam: GENERAL- Awake, alert, disoriented x 2. Answering questions, knows his and having some conversations. LUNGS- Air entry bilaterally equal. No rales, rhonchi, crackles, wheezes heard. HEART- Regular rate and rhythm. No murmurs EXTREMITIES- Good peripheral pulses, no edema NEUROMUSCULAR- Grossly moving all extremities Results & Data Vital Signs (Past 12 Hours) Vital Signs Temp Pulse Pulse Resp BP Pulse Ox 10/23/18 07:37 59 L 10/23/18 07:00 37.2 C 59 L 20 181/73 H 94 10/23/18 04:04 60 10/23/18 03:03 36.4 C L 57 L 16 159/73 H 92 10/22/18 23:24 37.1 C 57 L 18 161/83 H 93
--- NOTE | 2018-10-23 10:41 | Discharge Summary ---
Date of Service October 23, 2018 Admission HPI Per Admitting Provider Patient is an 83-year-old male with history of dyslipidemia, dementia, BPH, prostate cancer and other problems presents with history of generalized weakness, change in mental status, decreased urinary output, left flank pain, poor appetite. Patient was unable to provide much history secondary to dementia. Most of the history is obtained from patient's spouse who is the POA. As per the family patient has been progressively getting weak and has been sleeping most of the time since 3 days duration. Family also noted that his urinary output has been decreased and he was eating very poorly. He ambulates independently with little assistance but has a day for he was unable to get out of his chair despite help from family. Patient's says " He was babbling which didn't make Sense and has not been himself". He was noted to be drinking a lot of water but was unable to produce any urine. Patient was noted to have GISEL with creatinine elevated at 6.57, BUN 75. CT abdomen showed mild bilateral hydroureteronephrosis, findings suggestive of chronic outlet obstruction due to enlarged prostate. Also findings noted to be suggestive of possible cystitis/pyelonephritis. Incidental findings of lucent lesions within the ribs noted suggestive of possible developing multiple myeloma. Patient's denies any history of cough, shortness of breath, wheezing, fever chills. No known history of chest pain, SOB, dizziness, pedal edema, cough, wheezing, hemoptysis, fever, chills, nausea, vomiting, lood in stools, diarrhea, weight loss, dysuria, hematuria. Principal Diagnosis 1. GISEL, obstructive etiology, resolved 2. Urinary retention secondary to BPH status post Haq's catheter placement 3. Hematuria, resolved 4. Dementia, progressively worsening with possible delirium 5. Coincidental finding of rib lesions on imaging Discharge Exam GENERAL- Awake, alert, disoriented x 2. Answering questions, knows his and having some conversations. LUNGS- Air entry bilaterally equal. No rales, rhonchi, crackles, wheezes heard. HEART- Regular rate and rhythm. No murmurs EXTREMITIES- Good peripheral pulses, no edema NEUROMUSCULAR- Grossly moving all extremities Discharge Data Allergies Allergy/AdvReac Type Severity Reaction Status Date / Time caffeine Allergy Mild RASH Verified 10/18/18 10:48 orange Allergy Mild RASH Verified 10/18/18 10:48 sucrose Allergy Mild RASH Verified 10/18/18 10:48 Phosphoric Acid Allergy Mild RASH Uncoded 10/18/18 10:48 Consultations 10/18/18 14:00 ED Decision to Admit Stat 10/18/18 14:52 Consult Case Management - Discharge Planning Routine Consult Nephrology Routine Consult Urology Routine Ordered Studies 10/18/18 11:07 CT abd pelvis wo con Stat 10/19/18 08:00 US renal/blad retro comp Routine 10/20/18 20:48 CT head/brain wo con Routine Hospital Course (1) Acute kidney injury: Obstructive etiology - secondary to urinary retention Baseline creatinine 1.2 in July 2017. Presented with creatinine of 6.57 -Found to have urinary retention --> Haq catheter placed with high urine output- > 3 L since foleys placement. -CT of abdomen pelvis demonstrated bilateral hydronephrosis. -S/P IVF -Nephrology signed off -Urology signed off. (2) Urinary retention: Suspected bladder outlet obstruction attributed to prostatomegaly / BPH. -Receiving finasteride and tamsulosin. -Continue Haq catheter with voiding trial in 3 weeks per urology. -Follow up with urology outpatient (3) Hematuria: RESOLVED -Had gross hematuria which has resolved. -Thought to be secondary to bladder distention. -Urology on board (4) Dementia: Progressive dementia for several years. Prescribed memantine but discontinued because of no apparent benefit Underlying pathophysiology? Family history of Alzheimer's disease. -Has some parkinsonian features, consider Parkinson's disease. -MRI in 2010 showed atrophy and small vessel ischemic changes. -Zyprexa 2.5 mg q HS PRN added for agitation, but has not required these medications here (5) Altered mental status: Improved -Underlying dementia with progression over past several years. -Increasing confusion at time of admission, probable metabolic encephalopathy due to GISEL. -Probable delirium, possibly due to change of environment. -No apparent infection or other stressor. -Avoid anticholinergic meds and other meds with EARTH SCIENCE TEACHER side effects when able. (6) Rib lesion: -Few small lucent rib lesions incidentally noted on CT of abdomen. -Rule out multiple myeloma. D/D considered- Metastatic disease. -SPEP and UPEP are pending. Follow up outpatient -Had a detailed discussion with patient's - Will follow up the tests ordered, but do not want additional diagnostic or therapeutic intervention for this even if it is cancer. (7) Do not resuscitate status: --Per advanced directives. --No aggressive or heroic measures. Comfort is the goal. Avoid frequent hospitalizations. (8) DVT prophylaxis: -SQ heparin. -Ambulate. (9) Discharge planning issues: Plan is to discharge to [facility] today -Family Medicine follow-up with Dr. Monaco. -Urology follow-up with Dr. Hamlin. -Neurology follow-up with Dr. Byrd. by bedside and aware about discharge plan. Total Time Total Time Spent Total Time Spent (In Minutes): 40 minutes Discharge Plan Discharge Items Patient Disposition: Trans Resident Long-Term Care Reason For Visit: DECREASED URINE OUTPUT, WEAKNESS Discharge Diagnosis: 1. GISEL 2. Urinary retention secondary to BPH 3. Dementia, advanced Discharge Goals: Decrease discomfort Specific Goals: Comfort is the goal Activity: Resume your previous activity Activity Comment: as tolerated Non-emergency contact: Primary Care Provider Call non-emergency contact if: your symptoms worsen Follow-up/Referrals: Jonny Monaco MD [Primary Care Provider] - Esther Hamlin MD [Physician] - (Follow up in 3 weeks - call for appt date/time) Diet: Regular Addtl Provider Instructions: MEDICATION CHANGES 1. New medication-Seroquel 25 mg as needed at bedtime for increased agitation (allergic to Zyprexa- rash) 2. New medicationamlodipine 10 mg daily for elevated blood pressure 3. New medicationFlomax 0.4 mg nightly, Proscar 5 mg daily for BPH Haq's catheter care Placed during this admission for urinary retention by urology. Plan to keep this for at least 3 weeks until next urology appointment Prescriptions: New tamsulosin 0.4 mg Capsule 0.4 mg PO HS 30 Days Qty: 30 RF: 0 finasteride [Proscar] 5 mg Tablet 5 mg PO QAM 30 Days Qty: 30 RF: 0 quetiapine [Seroquel] 25 mg tablet 25 mg PO HS PRN (Reason: withdrawal symptoms) Qty: 20 RF: 0 amlodipine 10 mg tablet 10 mg PO DAILY Qty: 30 RF: 0 Continued memantine 10 mg tablet 10 mg PO BID RF: 0 Stand-Alone Forms: [facility] Discharge Orders: Discharge Order (Routine); Ordered 10/23/18 Ordered By: Destinee Juárez Admission Data Admit Date/Time: 10/18/18 13:35 Attending Provider: Destinee Juárez Admit Provider: Stuart Ravi Primary Care Provider: Jonny Monaco Other Providers: Stuart Ravi ; Arlene Cornejo ; Esther Hamlin ; Jairo Finn Service: Medical
[2018-10-23] MEDS ORDERED: AMLODIPINE BESYLATE 5 MG TAB PO ONE (11:15)
== END 2018-10-23 17:47 | DRG 682 ==
LOC: ED 09:58 → 2W 13:35 → SUATTDRO 13:35 → 2W 14:27